=== PATIENT | female | born 1940 | race Caucasian/White ===

== ENCOUNTER 2017-08-17 06:12 | Observation (INO) | payer MEDICARE, MEDICAID ==
[~2017-08-17 06:12] MED LIST changes: -ACET-2146 PO; -ALLO-119 PO; -ASCO-182 PO; -CALC-852 PO; -GLUC-198 PO; -LEVO-85 PO; -OMEG1CAP39 PO; -VERA120T72 PO; -WARF5TAB23 PO
--- NOTE | 2017-08-17 07:02 | ER Report ---
History and Physical Time Seen By MD: 07:02 HPI/ROS Chief Complaint: Weakness, s/p fall this morning at approximately 0200, b/l lower extremity weakness HPI: Patient is a 77 yo F here with complaints of weakness. Last night at approximately 0200 the patient was attempting to get to the bathroom when she realized she was too weak and slid down the door frame to the floor. Denies head trauma though she is on Warfarin. She reports that her weakness is b/l in the LE and she is on baseline oxygen 2 LPM NC (on 3-4 lpm here). She denies fevers, headaches, blurred vision, hematuria, melena. REVIEW OF SYSTEMS: Constitutional: No fever, No chills. Eyes: No discharge. ENT: No sore throat. Cardiovascular: No chest pain, no palpitations. Respiratory: No cough, + baseline shortness of breath. Gastrointestinal: + suprapubic abdominal pain, no vomiting. Genitourinary: No hematuria, no vaginal discharge. Musculoskeletal: No back pain. Skin: No rashes. Neurological: No headache. Allergies: Coded Allergies: digoxin (Verified Allergy, Severe, TOXIC, 08/17/17) Adhesive Bandage (Verified Allergy, Mild, 08/17/17) Penicillins (Verified Allergy, Mild, 08/17/17) Uncoded Allergies: NARCOTIC (Allergy, Unknown, VOMITING, 04/20/16) Home Meds Reported Medications Allopurinol (ZYLOPRIM) 300 Mg Tablet, 150 MG PO QDAY, TAB 08/17/17 Warfarin Sod (Coumadin (Or Equiv)) 2.5 Mg Tab, 2.5 MG PO 3XW for 2 Days, 0 Refills It is very important that you take your coumadin exactly as prescribed, have blood work to monitor your PT/INR values, and follow up with your health care provider as prescribed. Diet and medication can affect the PT/INR level. Keep your diet pretty much the same day to day. Many foods contain Vitamin K which helps blood to clot and can affect the way your coumadin works. You don't need to avoid foods that have Vitamin K, but you do need to eat about the same amount of them every day. Be sure to tell your provider before changing your diet for any reason (weight loss, illness, etc.) Do not start or discontinue any medications, prescribed or over the counter, except on the advise of your provider or pharmacist. Coumadin (Warfarin) increases the risk of bleeding. 10/04/11 Metoprolol Succinate (Metoprolol Succinate) 50 Mg Tab.sr.24h, 25 MG PO BID, 0 Refills 04/12/11 Oxygen (Oxygen) 2 L Inha, 3 L INH DAILY, 0 Refills 07/09/10 Atorvastatin (Lipitor) 10 Mg Tab, 10 MG PO QHS, 0 Refills 07/09/10 Glucosam Sul Na/Chondr [place] A Na (Ra Glucosamin-[place] Tb) 1 Tab Tablet, 1 TAB PO, 0 Refills 07/09/10 Fish Oil/[place]-3 Fatty Acids (Fish Oil 1,000 Mg Softgel) 1 Cap Capsule, 1 CAP PO , 0 Refills 07/09/10 Calcium Carbonate (Calcium) 600 Mg Tablet, 600 MG PO, 0 Refills 07/09/10 Potassium Chloride (Micro-K/K-Dur/Klor-Con) 10 Meq Capcr, 40 MEQ PO BID, 0 Refills 07/09/10 Montelukast Sodium (Singulair) 10 Mg Tablet, 10 MG PO QPM, 0 Refills 07/09/10 Furosemide (Lasix) 40 Mg Tab, 40 MG PO BID, 0 Refills 07/09/10 Discontinued Reported Medications Clindamycin Hcl (CLINDAMYCIN HCL) 150 Mg Capsule, 150 MG PO TID, #21 CAPSULE 12/03/12 Warfarin Sod (Coumadin (Or Equiv)) 5 Mg Tab, 5 MG PO QDAY for 5 Days, 0 Refills It is very important that you take your coumadin exactly as prescribed, have blood work to monitor your PT/INR values, and follow up with your health care provider as prescribed. Diet and medication can affect the PT/INR level. Keep your diet pretty much the same day to day. Many foods contain Vitamin K which helps blood to clot and can affect the way your coumadin works. You don't need to avoid foods that have Vitamin K, but you do need to eat about the same amount of them every day. Be sure to tell your provider before changing your diet for any reason (weight loss, illness, etc.) Do not start or discontinue any medications, prescribed or over the counter, except on the advise of your provider or pharmacist. Coumadin (Warfarin) increases the risk of bleeding. 10/04/11 Verapamil Hcl (Verapamil Er) 100 Mg Cap24h.pel, 100 MG PO QHS, 0 Refills 05/20/11 Verapamil Hcl (Verapamil Er) 100 Mg Cap24h.pel, 100 MG PO NOON, 0 Refills 05/20/11 Verapamil Hcl (Verapamil Er) 100 Mg Cap24h.pel, 50 MG PO QAM, 0 Refills 05/20/11 Fluticasone Propionate (Flovent Hfa 110 Mcg) 12 Gm Aer.w.adap, 0 INH BID, 0 Refills 07/09/10 Tiotropium [place] (Spiriva) 18 Mcg Inh, 1 PUFF DAILY, 0 Refills 07/09/10 Alprazolam (Alprazolam) 0.5 Mg Tab.rapdis, 0.5 MG PO HS, 0 Refills as needed 07/09/10 Discontinued Scripts Cephalexin Monohydrate (CEPHALEXIN) 500 Mg Cap, 500 MG PO Q6H, #28 CAP TAKE 1 CAPSULE BY MOUTH EVERY SIX HOURS Prov:SUMIT REED MD 05/08/14 Hx Smoking: No Exposure to Second Hand Smoke?: No Hx Substance Use Disorder: No Hx Alcohol Use: No Constitutional Vital Sign - Last 24 Hours 08/17/17 08/17/17 08/17/17 08/17/17 06:12 06:28 06:40 06:42 Pulse 49 55 B/P (MAP) 145/74 (97) 151/80 (103) Pulse Ox 95 94 08/17/17 08/17/17 08/17/17 08/17/17 07:00 07:12 07:20 07:40 Pulse 66 B/P (MAP) 154/89 (110) 139/76 (97) Pulse Ox 97 O2 Flow Rate 2.0 08/17/17 08/17/17 08/17/17 08/17/17 07:47 07:52 07:57 08:00 Temp 98.6 Pulse 49 53 B/P (MAP) 149/71 (97) Pulse Ox 97 95 08/17/17 08/17/17 08/17/17 08/17/17 08:19 08:24 08:27 08:28 Pulse 61 Resp 29 B/P (MAP) 166/105 (125) 171/94 (119) 166/105 (125) 171/94 (119) Pulse Ox 84 08/17/17 08:40 B/P (MAP) 154/74 (100) Physical Exam General Appearance: The patient is alert, has no immediate need for airway protection and no signs of toxicity. No acute distress Eyes: Pupils equal and round no pallor or injection. ENT, Mouth: Mucous membranes are moist. Respiratory: There are no retractions, lungs are clear to auscultation. Cardiovascular: Irregular rate and rhythm, bradycardic Gastrointestinal: Abdomen is soft and + mild tenderness suprapubic region, no masses, bowel sounds normal. Neurological: Bilateral lower extremity weakness, subjective, reflexes intact Skin: Warm and dry, no rashes. Musculoskeletal: Neck is supple non tender. Extremities are nontender, nonswollen and have full range of motion. [ ] DIFFERENTIAL DIAGNOSIS: After history and physical exam differential diagnosis was considered for electrolyte abnormality, urinary tract infection, abdominal infection, trauma, intracranial bleed. Medical Decision Making Data Points Result Diagram: 08/17/17 0744 08/17/17 0744 Laboratory Hematology Test 08/17/17 07:44 08/17/17 07:56 Red Blood Count 4.39 M/uL (4.17-5.56) Mean Corpuscular Volume 95.7 fL (80.0-96.0) Mean Corpuscular Hemoglobin 33.2 pg (26.0-33.0) Mean Corpuscular Hemoglobin Concent 34.7 g/dL (32.0-36.0) Red Cell Distribution Width 14.8 % (11.5-14.5) Mean Platelet Volume 9.2 fL (7.2-11.1) Neutrophils (%) (Auto) 79.9 % (39.4-72.5) Lymphocytes (%) (Auto) 7.9 % (17.6-49.6) Monocytes (%) (Auto) 10.6 % (4.1-12.4) Eosinophils (%) (Auto) 0.9 % (0.4-6.7) Basophils (%) (Auto) 0.7 % (0.3-1.4) Nucleated RBC Relative Count (auto) 0.0 /100WBC Neutrophils # (Auto) 7.8 K/uL (2.0-7.4) Lymphocytes # (Auto) 0.8 K/uL (1.3-3.6) Monocytes # (Auto) 1.0 K/uL (0.3-1.0) Eosinophils # (Auto) 0.1 K/uL (0.0-0.5) Basophils # (Auto) 0.1 K/uL (0.0-0.1) Nucleated RBC Absolute Count (auto) 0.00 K/uL Peripheral Blood Smear No Y/N Prothrombin Time 20.3 seconds (12.0-14.4) Prothromb Time International Ratio 1.70 Activated Partial Thromboplast Time 30 seconds (23-35) Sodium Level 140 mmol/L (137-145) Potassium Level 3.7 mmol/L (3.5-5.0) Chloride Level 93 mmol/L (98-107) Carbon Dioxide Level 36 mmol/L (22-31) Blood Urea Nitrogen 22 mg/dl (7-18) Creatinine 0.90 mg/dl (0.52-1.04) Glomerular Filtration Rate Calc > 60.0 Random Glucose 111 mg/dl (75-110) Calcium Level 9.3 mg/dl (8.4-10.2) Total Bilirubin 0.8 mg/dl (0.2-1.3) Aspartate Amino Transf (AST/SGOT) 28 U/L (0-35) Alanine Aminotransferase (ALT/SGPT) 32 U/L (0-56) Alkaline Phosphatase 67 U/L (0-126) Troponin I < 0.012 ng/ml Total Protein 7.6 g/dl (6.3-8.2) Albumin 3.9 g/dl (3.5-5.0) Urine Color [place] Urine Clarity Turbid Urine pH 6.0 pH (4.8-9.5) Urine Specific [place] 1.012 Urine Protein 100 mg/dL (NEGATIVE) Urine Glucose (UA) Negative mg/dL (NEGATIVE) Urine Ketones Negative mg/dL (NEGATIVE) Urine Blood Small (NEGATIVE) Urine Nitrite Negative (NEGATIVE) Urine Bilirubin Negative (NEGATIVE) Urine Urobilinogen Negative mg/dL (0.2-1.9) Urine Leukocyte Esterase Large (NEGATIVE) Urine RBC 21 /HPF (0-2/HPF) Urine WBC 3068 /HPF (0-5/HPF) Urine WBC Clumps Many /HPF Urine Squamous Epithelial Cells Many /LPF (</=FEW) Urine Transitional Epithelial Cells Many /LPF (NONE-FEW) Urine Bacteria Many /HPF (NONE-FEW) Urine Mucus None /HPF (NONE-FEW) Chemistry Test 08/17/17 07:44 08/17/17 07:56 White Blood Count 9.7 k/uL (4.5-11.0) Red Blood Count 4.39 M/uL (4.17-5.56) Hemoglobin 14.6 g/dL (12.0-16.0) Hematocrit 42.0 % (34.0-47.0) Mean Corpuscular Volume 95.7 fL (80.0-96.0) Mean Corpuscular Hemoglobin 33.2 pg (26.0-33.0) Mean Corpuscular Hemoglobin Concent 34.7 g/dL (32.0-36.0) Red Cell Distribution Width 14.8 % (11.5-14.5) Platelet Count 190 K/uL (150-450) Mean Platelet Volume 9.2 fL (7.2-11.1) Neutrophils (%) (Auto) 79.9 % (39.4-72.5) Lymphocytes (%) (Auto) 7.9 % (17.6-49.6) Monocytes (%) (Auto) 10.6 % (4.1-12.4) Eosinophils (%) (Auto) 0.9 % (0.4-6.7) Basophils (%) (Auto) 0.7 % (0.3-1.4) Nucleated RBC Relative Count (auto) 0.0 /100WBC Neutrophils # (Auto) 7.8 K/uL (2.0-7.4) Lymphocytes # (Auto) 0.8 K/uL (1.3-3.6) Monocytes # (Auto) 1.0 K/uL (0.3-1.0) Eosinophils # (Auto) 0.1 K/uL (0.0-0.5) Basophils # (Auto) 0.1 K/uL (0.0-0.1) Nucleated RBC Absolute Count (auto) 0.00 K/uL Peripheral Blood Smear No Y/N Prothrombin Time 20.3 seconds (12.0-14.4) Prothromb Time International Ratio 1.70 Activated Partial Thromboplast Time 30 seconds (23-35) Glomerular Filtration Rate Calc > 60.0 Calcium Level 9.3 mg/dl (8.4-10.2) Total Bilirubin 0.8 mg/dl (0.2-1.3) Aspartate Amino Transf (AST/SGOT) 28 U/L (0-35) Alanine Aminotransferase (ALT/SGPT) 32 U/L (0-56) Alkaline Phosphatase 67 U/L (0-126) Troponin I < 0.012 ng/ml Total Protein 7.6 g/dl (6.3-8.2) Albumin 3.9 g/dl (3.5-5.0) Urine Color Yuliana Urine Clarity Turbid Urine pH 6.0 pH (4.8-9.5) Urine Specific [place] 1.012 Urine Protein 100 mg/dL (NEGATIVE) Urine Glucose (UA) Negative mg/dL (NEGATIVE) Urine Ketones Negative mg/dL (NEGATIVE) Urine Blood Small (NEGATIVE) Urine Nitrite Negative (NEGATIVE) Urine Bilirubin Negative (NEGATIVE) Urine Urobilinogen Negative mg/dL (0.2-1.9) Urine Leukocyte Esterase Large (NEGATIVE) Urine RBC 21 /HPF (0-2/HPF) Urine WBC 3068 /HPF (0-5/HPF) Urine WBC Clumps Many /HPF Urine Squamous Epithelial Cells Many /LPF (</=FEW) Urine Transitional Epithelial Cells Many /LPF (NONE-FEW) Urine Bacteria Many /HPF (NONE-FEW) Urine Mucus None /HPF (NONE-FEW) Coagulation Test 08/17/17 07:44 Prothrombin Time 20.3 seconds Prothromb Time International Ratio 1.70 Activated Partial Thromboplast Time 30 seconds Urinalysis Test 08/17/17 07:56 Urine Color [place] Urine Clarity Turbid Urine pH 6.0 pH (4.8-9.5) Urine Specific [place] 1.012 Urine Protein 100 mg/dL (NEGATIVE) Urine Glucose (UA) Negative mg/dL (NEGATIVE) Urine Ketones Negative mg/dL (NEGATIVE) Urine Blood Small (NEGATIVE) Urine Nitrite Negative (NEGATIVE) Urine Bilirubin Negative (NEGATIVE) Urine Urobilinogen Negative mg/dL (0.2-1.9) Urine Leukocyte Esterase Large (NEGATIVE) Urine RBC 21 /HPF (0-2/HPF) Urine WBC 3068 /HPF (0-5/HPF) Urine WBC Clumps Many /HPF Urine Squamous Epithelial Cells Many /LPF (</=FEW) Urine Transitional Epithelial Cells Many /LPF (NONE-FEW) Urine Bacteria Many /HPF (NONE-FEW) Urine Mucus None /HPF (NONE-FEW) EKG/Imaging EKG Interpretation 12 lead EKG: Atrial fibrillation, rate 61 and the ischemic changes Rhythm: Atrial fibrillation Monitor Interpretation: Atrial Fibrillation Imaging Exam type: CHEST PA AND LAT History: weakness, SOB Comparison: September 20, 2011. Findings: Again noted is linear scarring in the lingula. There is no evidence of acute- appearing pulmonary consolidation, pleural effusions or overt pulmonary edema. Cardiac silhouette is enlarged, slightly increased when compared the prior study. There is moderate ectasia the thoracic aorta. Moderate spondylotic changes of the thoracic spine also noted IMPRESSION: 1. Linear scarring in the lingula although no evidence of acute pulmonary consolidation EXAMINATION: Head CT without intravenous contrast History: Weakness after fall. TECHNIQUE: Contiguous axial images were obtained from the skull base to the vertex without intravenous contrast. One of the following dose optimization techniques was utilized in the performance of this exam: Automated exposure control; adjustment of the mA and/or kV according to the patient's size; or use of an iterative reconstruction technique. Specific details can be referenced in the facility's radiology CT exam operational policy. COMPARISON STUDIES: none FINDINGS: Visualized mastoid air cells / paranasal sinuses: Mild mucosal thickening and small retention cysts in the maxillary sinuses. Moderate mucosal thickening ethmoid air cells on the left status post surgery. Calvarium and scalp: negative White matter: Moderate chronic small vessel disease. Dural venous sinuses / arterial structures: negative Ventricles / sulci / fissures: negative Masses / hemorrhage / midline shift: negative Extra-axial spaces: negative IMPRESSION: 1. No evidence of fracture or acute intracranial pathology. 2. Moderate chronic small vessel disease. 3. Paranasal sinus disease. ED Course/Re-evaluation ED Course Patient is a 77-year-old female here with complaints of lower extremity weakness bilaterally equal. Patient reportedly fell overnight and denies striking her head. She is currently on Coumadin found to be subtherapeutic on her INR level of 1.7. Patient was found to have a urinary tract infection which likely accounts for her weakness. Patient lives alone at home and was seen by paramedics at which time she refused to come in. She does report increased weakness, inability to get around her house currently. Patient is also on oxygen at baseline 2 L nasal cannula. Patient was too weak to stand here in the emergency department. Patient was given initial saline bolus as well as a dose of Levaquin for coverage of urinary tract infection. CT head was completed due to blood thinners and was negative for intracranial bleed. Chest x-ray showed no acute findings. Patient was discussed with Dr. Quintero who accepted the patient to the hospital service. Patient developed nausea and was given Zofran for symptoms management. Re-evaluation 08/17/2017 8:52:35 am I reevaluated the patient and she reports that she was unable to stand due to weakness during orthostatic blood pressure checks. Decision to Disposition Date: Aug 17, 2017 Decision to Disposition Time: 09:43 Depart Departure Latest Vital Signs Vital Signs Date Time Temp Pulse Resp B/P (MAP) Pulse Ox O2 Delivery O2 Flow Rate FiO2 08/17/17 08:40 154/74 (100) 08/17/17 08:27 61 29 84 08/17/17 07:47 98.6 08/17/17 07:20 2.0 Impression: Primary Impression: Urinary tract infection Additional Impressions: Subtherapeutic international normalized ratio (INR) Bilateral leg weakness Condition: Condition Unchanged Disposition: Admitted from ER Referrals: TERE BRITO MD (PCP) Problem Qualifiers MATTEO NGUYEN DO Aug 17, 2017 07:02
[2017-08-17 08:03] LABS: PLATELET COUNT, AUTOMATED 190 K/uL (150-450)
[2017-08-17 08:05] LABS: INR 1.7
[2017-08-17] MEDS ORDERED: NS(*) 0.9% 500 ML BAG 500 ML IV ONE (08:25)
[2017-08-17] MEDS ORDERED: LEVOFLOXACIN/D5W 750 MG/150 ML 150 ML IVPB ONE (08:25)
[2017-08-17] MEDS ORDERED: ALLO-119 PO (08:31)
--- NOTE | 2017-08-17 09:32 | EKG ---
FACILITY: [facility] - [place] PATIENT NAME: TEO DEVINE : [id number] MR: [id number] V: [id number] EXAM DATE: ORDERING PHYSICIAN: MATTEO NGUYEN TECHNOLOGIST: Test Reason : Blood Pressure : / mmHG Vent. Rate : 061 BPM Atrial Rate : 357 BPM P-R Int : 000 ms QRS Dur : 076 ms QT Int : 474 ms P-R-T Axes : 000 009 -01 degrees QTc Int : 477 ms Atrial flutter Low voltage QRS Cannot rule out Anterior infarct (cited on or before 13-JUL-2012) Abnormal ECG When compared with ECG of 13-JUL-2012 12:57, Nonspecific T wave abnormality now evident in Lateral leads Confirmed by TERE ARVIZU ([id number]) on 08/17/2017 12:27:36 PM Referred By: MOISES Confirmed By:TERE ARVIZU
--- NOTE | 2017-08-17 09:44 | RADIOLOGY IMAGING REPORT ---
[place] [facility] [place] NAME: Kimberlee Graham : 1940 MR: [id number] V: [id number] EXAM DATE: ORDERING PHYSICIAN: MATTEO NGUYEN TECHNOLOGIST: [place] [facility] [place] Kimberlee Graham : 1940 Visit/Account:[id number] Date of Sevice: 08/17/2017 Exam type: CHEST PA AND LAT History: weakness, SOB Comparison: September 20, 2011. Findings: Again noted is linear scarring in the lingula. There is no evidence of acute-appearing pulmonary con solidation, pleural effusions or overt pulmonary edema. Cardiac silhouette is enlarged, slightly inc reased when compared the prior study. There is moderate ectasia the thoracic aorta. Moderate spondy lotic changes of the thoracic spine also noted IMPRESSION: 1. Linear scarring in the lingula although no evidence of acute pulmonary consolidation Cardiomegaly slightly increased when compared the prior study although no evidence of overt pulmonary edema Report Dictated By: Elisa Branch MD at 08/17/2017 9:39 AM Report E-Signed By: Elisa Branch MD at 08/17/2017 9:41 AM [email or web address]
--- NOTE | 2017-08-17 09:51 | RADIOLOGY IMAGING REPORT ---
FACILITY: [facility] PATIENT NAME: Kimberlee Graham : 1940 MR: [id number] V: [id number] EXAM DATE: ORDERING PHYSICIAN: MATTEO NGUYEN TECHNOLOGIST: Location: [facility] Patient: Kimberlee Graham : 1940 Visit/Account:[id number] Date of Sevice: 08/17/2017 EXAMINATION: Head CT without intravenous contrast History: Weakness after fall. TECHNIQUE: Contiguous axial images were obtained from the skull base to the vertex without intraven ous contrast. One of the following dose optimization techniques was utilized in the performance of th is exam: Automated exposure control; adjustment of the mA and/or kV according to the patient's size; or use of an iterative reconstruction technique. Specific details can be referenced in the facility 's radiology CT exam operational policy. COMPARISON STUDIES: none FINDINGS: Visualized mastoid air cells / paranasal sinuses: Mild mucosal thickening and small retention cysts i n the maxillary sinuses. Moderate mucosal thickening ethmoid air cells on the left status post surger y. Calvarium and scalp: negative White matter: Moderate chronic small vessel disease. Dural venous sinuses / arterial structures: negative Ventricles / sulci / fissures: negative Masses / hemorrhage / midline shift: negative Extra-axial spaces: negative IMPRESSION: 1. No evidence of fracture or acute intracranial pathology. 2. Moderate chronic small vessel disease. 3. Paranasal sinus disease. Report Dictated By: Chase Garcia MD at 08/17/2017 9:45 AM Report E-Signed By: Chase Garcia MD at 08/17/2017 9:47 AM WSN:[email or web address]
[2017-08-17] MEDS ORDERED: ONDANSETRON 4 MG/2 ML VIAL IVP ONE (10:00)
[2017-08-17 10:33] VITALS: BP 113/88
[2017-08-17 10:51] VITALS: BP 139/82
[2017-08-17] MEDS ORDERED: INFLUENZA VIRUS VAC 0.5 ML SYR IM ONLY ONE (11:00)
--- NOTE | 2017-08-17 11:17 | History & Physical ---
History of Present Illness Chief Complaint Weakness History of Present Illness This patient presented to the emergency room after being unable to get out of her chair. She had to call paramedics twice in the last 24hrs because she was unable to get up. She denies any pain in her legs, but just describes a sensation of weakness. History Problems: (1) Afib (2) History of DVT (deep vein thrombosis) (3) Chronic diastolic (congestive) heart failure Home Meds Reported Medications Allopurinol (ZYLOPRIM) 300 Mg Tablet, 150 MG PO QDAY, TAB 08/17/17 Warfarin Sod (Coumadin (Or Equiv)) 2.5 Mg Tab, 2.5 MG PO 3XW for 2 Days, 0 Refills It is very important that you take your coumadin exactly as prescribed, have blood work to monitor your PT/INR values, and follow up with your health care provider as prescribed. Diet and medication can affect the PT/INR level. Keep your diet pretty much the same day to day. Many foods contain Vitamin K which helps blood to clot and can affect the way your coumadin works. You don't need to avoid foods that have Vitamin K, but you do need to eat about the same amount of them every day. Be sure to tell your provider before changing your diet for any reason (weight loss, illness, etc.) Do not start or discontinue any medications, prescribed or over the counter, except on the advise of your provider or pharmacist. Coumadin (Warfarin) increases the risk of bleeding. 10/04/11 Metoprolol Succinate (Metoprolol Succinate) 50 Mg Tab.sr.24h, 25 MG PO BID, 0 Refills 04/12/11 Oxygen (Oxygen) 2 L Inha, 3 L INH DAILY, 0 Refills 07/09/10 Atorvastatin (Lipitor) 10 Mg Tab, 10 MG PO QHS, 0 Refills 07/09/10 Glucosam Sul Na/Chondr Glover A Na (Ra Glucosamin-Chondroit Tb) 1 Tab Tablet, 1 TAB PO, 0 Refills 07/09/10 Fish Oil/[place]-3 Fatty Acids (Fish Oil 1,000 Mg Softgel) 1 Cap Capsule, 1 CAP PO , 0 Refills 07/09/10 Calcium Carbonate (Calcium) 600 Mg Tablet, 600 MG PO, 0 Refills 07/09/10 Potassium Chloride (Micro-K/K-Dur/Klor-Con) 10 Meq Capcr, 40 MEQ PO BID, 0 Refills 07/09/10 Montelukast Sodium (Singulair) 10 Mg Tablet, 10 MG PO QPM, 0 Refills 07/09/10 Furosemide (Lasix) 40 Mg Tab, 40 MG PO BID, 0 Refills 07/09/10 Discontinued Reported Medications Clindamycin Hcl (CLINDAMYCIN HCL) 150 Mg Capsule, 150 MG PO TID, #21 CAPSULE 12/03/12 Warfarin Sod (Coumadin (Or Equiv)) 5 Mg Tab, 5 MG PO QDAY for 5 Days, 0 Refills It is very important that you take your coumadin exactly as prescribed, have blood work to monitor your PT/INR values, and follow up with your health care provider as prescribed. Diet and medication can affect the PT/INR level. Keep your diet pretty much the same day to day. Many foods contain Vitamin K which helps blood to clot and can affect the way your coumadin works. You don't need to avoid foods that have Vitamin K, but you do need to eat about the same amount of them every day. Be sure to tell your provider before changing your diet for any reason (weight loss, illness, etc.) Do not start or discontinue any medications, prescribed or over the counter, except on the advise of your provider or pharmacist. Coumadin (Warfarin) increases the risk of bleeding. 10/04/11 Verapamil Hcl (Verapamil Er) 100 Mg Cap24h.pel, 100 MG PO QHS, 0 Refills 05/20/11 Verapamil Hcl (Verapamil Er) 100 Mg Cap24h.pel, 100 MG PO NOON, 0 Refills 05/20/11 Verapamil Hcl (Verapamil Er) 100 Mg Cap24h.pel, 50 MG PO QAM, 0 Refills 05/20/11 Fluticasone Propionate (Flovent Hfa 110 Mcg) 12 Gm Aer.w.adap, 0 INH BID, 0 Refills 07/09/10 Tiotropium [place] (Spiriva) 18 Mcg Inh, 1 PUFF DAILY, 0 Refills 07/09/10 Alprazolam (Alprazolam) 0.5 Mg Tab.rapdis, 0.5 MG PO HS, 0 Refills as needed 07/09/10 Discontinued Scripts Cephalexin Monohydrate (CEPHALEXIN) 500 Mg Cap, 500 MG PO Q6H, #28 CAP TAKE 1 CAPSULE BY MOUTH EVERY SIX HOURS Prov:SUMIT REED MD 05/08/14 Allergies: Coded Allergies: digoxin (Verified Allergy, Severe, TOXIC, 08/17/17) Adhesive Bandage (Verified Allergy, Mild, 08/17/17) Penicillins (Verified Allergy, Mild, 08/17/17) Uncoded Allergies: NARCOTIC (Allergy, Unknown, VOMITING, 04/20/16) Hx Smoking: No Exposure to Second Hand Smoke?: No Caffeine Intake: Coffee, Tea, Soda Caffeine/Cups Per Day: OCC Hx Alcohol Use: No Hx Substance Use Disorder: No Review of Systems All Systems Reviewed/Normal: Yes, Except as Noted Neurological: Weakness Exam Vital Signs Vital Signs Date Time Temp Pulse Resp B/P (MAP) Pulse Ox O2 Delivery O2 Flow Rate FiO2 08/17/17 10:51 98.4 63 20 139/82 (101) 97 Nasal Cannula 4.0 Neuro: No Gross deficits Eyes: PERRLA Cardiovascular: Regular Rate and Rhythm Respiratory: Clear to Auscultation GI: Abd Soft and Non-Tender Extremities: No Edema Integumentary: No Cyanosis Medical Decision Making Data Points Result Diagram: 08/17/17 0744 08/17/17 0744 EKG / Imaging Imaging Chest x-ray reviewed. CT head reviewed. Assessment and Plan Problems: (1) Bilateral leg weakness Status: Acute Assessment & Plan: She had two episodes where she could not get out of her chair and had to call EMS. She denies any pain or injury. An ESR and CPK have been ordered. Physical and occupational therapy have also been consulted. (2) Pyuria Assessment & Plan: Her urine did contain many WBC and bacteria, but this was reportedly collected from a toilet hat. A cath UA and culture have been ordered , but this was collected after she received a dose of levofloxacin in the emergency room. (3) Afib Assessment & Plan: She is on chronic treatment with metoprolol and warfarin. Daily INR monitoring has been ordered. (4) Chronic diastolic (congestive) heart failure Assessment & Plan: She is on chronic treatment with Lasix. Her last echocardiogram (2011) showed an ejection fraction of 57%. Daily weights have been ordered. Copies to: TERE BRITO MD Venous Thromboembolism Antithrombotics Is Pt On Any Antithrombotics?: Yes Exam Sepsis Risk: No Definite Risk TERE ARVIZU DO Aug 17, 2017 11:17
[2017-08-17] MEDS ORDERED: WARFARIN SOD 2.5 MG TAB PO SCH ×2 (13:00→15:15)
[2017-08-17] MEDS: FUROSEMIDE 40 MG TAB PO SCH (14:26)
[2017-08-17 14:59] VITALS: BP 146/71
[2017-08-17] MEDS ORDERED: VERA120T72 PO (14:59)
[2017-08-17] MEDS ORDERED: CALC-852 PO (14:59)
[2017-08-17] MEDS ORDERED: GLUC-198 PO (14:59)
[2017-08-17] MEDS ORDERED: OMEG1CAP39 PO (14:59)
[2017-08-17] MEDS ORDERED: VERA120C9 PO (14:59)
[2017-08-17] MEDS ORDERED: WARF5TAB23 PO (14:59)
[2017-08-17] MEDS ORDERED: ASCO-182 PO (14:59)
[2017-08-17] MEDS ORDERED: ACET-2146 PO (14:59)
[2017-08-17] MEDS: MONTELUKAST SODIUM 10 MG TAB PO SCH (16:49)
[2017-08-17] MEDS ORDERED: POTASSIUM CHL 10 MEQ TABCR PO SCH (17:00)
[2017-08-17 19:20] VITALS: BP 136/71
[2017-08-17] MEDS ORDERED: METOPROLOL SUCC XL 25 MG TABCR PO SCH (21:00)
[2017-08-17 23:37] VITALS: BP 163/91
[2017-08-18] VITALS (7 sets, daily range): BP systolic 153–169; BP diastolic 76–101
[2017-08-18 05:54] LABS: INR 2.26
[2017-08-18] MEDS: FUROSEMIDE 40 MG TAB PO SCH ×2 (08:37→14:46)
[2017-08-18] MEDS: ALLOPURINOL 300 MG TAB PO SCH (08:37)
[2017-08-18] MEDS ORDERED: VERAPAMIL HCL 40 MG TAB PO SCH (09:00)
[2017-08-18] MEDS ORDERED: VERAPAMIL HCL 120 MG PO SCH (09:00)
[2017-08-18] MEDS: LEVOFLOXACIN 500 MG TAB PO SCH (10:16)
--- NOTE | 2017-08-18 11:02 | Hospitalist Progress Note ---
Subjective Progress Notes Subjective She reports feeling much improved. She was able to ambulate with PT/nursing. Physical Exam Vital Signs Date Time Temp Pulse Resp B/P (MAP) Pulse Ox O2 Delivery O2 Flow Rate FiO2 08/18/17 08:39 98.0 53 20 164/80 (108) 99 Nasal Cannula 4.0 Intake and Output 08/19/17 07:00 Intake Total 240 ml Balance 240 ml Intake Oral 240 ml # Voids 1 General Appearance: Alert, Awake Cardiovascular: Regular Rate and Rhythm Respiratory: Clear to Auscultation GI: Soft and Non-Tender Result Diagram: 08/17/17 0744 08/17/17 07 Monitor Interpretation: Atrial Fibrillation Assessment and Plan Problems: (1) Bilateral leg weakness Status: Acute Assessment & Plan: She had two episodes where she could not get out of her chair and had to call EMS. She denies any pain or injury. An ESR and CPK are unremarkable. Physical therapy has seen her and she is now ambulating well. I suspect it may have been related to UTI. (2) Pyuria Assessment & Plan: Cath UA shows many WBCs and culture is growing a GNR. She is on Levaquin and seems to be improved. (3) Afib Assessment & Plan: She is on chronic treatment with metoprolol and warfarin. Daily INR monitoring has been ordered. (4) Chronic diastolic (congestive) heart failure Assessment & Plan: She is on chronic treatment with Lasix. Her last echocardiogram (2011) showed an ejection fraction of 57%. Daily weights have been ordered. Exam Sepsis Risk: No Definite Risk SALO SMITH MD Aug 18, 2017 11:02
[2017-08-18] MEDS: POTASSIUM CHL 10 MEQ TABCR PO SCH ×2 (12:45→17:18)
[2017-08-18] MEDS: WARFARIN SOD 5 MG TAB PO SCH (12:47)
[2017-08-18] MEDS ORDERED: POTASSIUM CHL 10 MEQ TABCR PO ONE (13:00)
[2017-08-18] MEDS: MONTELUKAST SODIUM 10 MG TAB PO SCH (17:18)
[2017-08-19 03:17] VITALS: BP 154/79
[2017-08-19 06:58] LABS: PLATELET COUNT, AUTOMATED 142 K/uL (150-450)
[2017-08-19 07:00] LABS: INR 2.15
[2017-08-19 07:10] VITALS: BP 143/70
[2017-08-19] MEDS: POTASSIUM CHL 10 MEQ TABCR PO SCH ×2 (09:47→12:37)
[2017-08-19] MEDS: ALLOPURINOL 300 MG TAB PO SCH (09:47)
[2017-08-19] MEDS: FUROSEMIDE 40 MG TAB PO SCH ×2 (09:47→13:10)
[2017-08-19] MEDS: LEVOFLOXACIN 500 MG TAB PO SCH (10:18)
[2017-08-19 11:27] VITALS: BP 150/77
[2017-08-19] MEDS ORDERED: LEVO-85 PO (11:31)
--- NOTE | 2017-08-19 11:46 | Hospitalist Depart ---
Discharge Summary Reason for Hosp/Final Diag: (1) Urinary tract infection Status: Acute Hospital Course & Plan: She presented with weakness. She had significant pyuria. There were 2 cultures done and they are both growing Citrobacter Koseri , but in low colony/ml numbers. It is sensitive to Levofloxacin, which will be continued for one more day to make a 3 day course of treatment. She has been afebrile and has had a normal WBC. (2) Bilateral leg weakness Status: Acute Hospital Course & Plan: She had two episodes where she could not get out of her chair and had to call EMS. She denies any pain or injury. An ESR and CPK are unremarkable. It seems to have been related to UTI. Physical therapy has seen her and report that she was able to walk independently with a RW. She continues to ambulate safely with nursing staff today. (3) Afib Hospital Course & Plan: She is on chronic treatment with metoprolol and warfarin. She is not on rate control medication and is actually borderline bradycardic at times. She is not symptomatic. INR is therapeutic. Will have her get a repeat INR in a week. (4) Chronic diastolic (congestive) heart failure Hospital Course & Plan: She is on chronic treatment with Lasix. Her last echocardiogram (2011) showed an ejection fraction of 57%. Departure Weight (Pounds): 190 Weight (Ounces): 3.0 Result Diagram: 08/19/17 0614 08/19/17613 Item Value Date Time Urine Leukocyte Esterase Large H 08/17/17 0756 Urine Leukocyte Esterase Moderate H 08/17/17 1230 Urine RBC 21 /HPF 08/17/17 0756 Urine WBC 3068 /HPF 08/17/17 0756 Urine WBC 4310 /HPF 08/17/17 1230 Urine RBC 22 /HPF 08/17/17 1230 Urine Squamous Epithelial Cells Many /LPF H 08/17/17 0756 Urine Squamous Epithelial Cells None /LPF 08/17/17 1230 White Blood Count 7.9 k/uL 08/19/17 0614 Neutrophils (%) (Auto) 76.9 % H 08/19/17 0614 Lymphocytes (%) (Auto) 10.4 % L 08/19/17 0614 Monocytes (%) (Auto) 10.9 % 08/19/17 0614 Blood Urea Nitrogen 22 mg/dl H 08/17/17 0744 Blood Urea Nitrogen 20 mg/dl H 08/19/17 0614 Creatinine 0.80 mg/dl 08/19/17 06 Creatinine 0.90 mg/dl 08/17/17 07 Sodium Level 140 mmol/L 08/17/17 0744 Sodium Level 137 mmol/L 08/19/17 0614 Potassium Level 4.0 mmol/L 08/19/17613 Potassium Level 3.7 mmol/L 08/17/17 07 Carbon Dioxide Level 36 mmol/L H 08/17/17 0744 Carbon Dioxide Level 36 mmol/L H 08/19/17 0614 Calcium Level 9.3 mg/dl 08/17/17 07 Aspartate Amino Transf (AST/SGOT) 28 U/L 08/17/17 07 Alanine Aminotransferase (ALT/SGPT) 32 U/L 08/17/17 07 Alkaline Phosphatase 67 U/L 08/17/17 07 Total Bilirubin 0.8 mg/dl 08/17/17743 Total Creatine Kinase 42 U/L 08/17/17 0744 Calcium Level 8.5 mg/dl 08/19/17613 Total Bilirubin 0.6 mg/dl 08/19/17 0614 Aspartate Amino Transf (AST/SGOT) 20 U/L 08/19/17 0614 Alanine Aminotransferase (ALT/SGPT) 23 U/L 08/19/17 0614 Alkaline Phosphatase 53 U/L 08/19/1714 Troponin I < 0.012 ng/ml 08/17/17743 Prothromb Time International Ratio 2.15 08/19/17613 Prothromb Time International Ratio 2.26 08/18/17 0529 Prothromb Time International Ratio 1.70 08/17/17743 SPEC #: [id number] YANCI: 08/17/17 STATUS: COMP REQ #: [id number] RECD: 08/17/[address]: TERE ARVIZU DO SOURCE: STRCATH ENTR: 08/17/[address]: TERE BRITO MD SPDESC: ORDERED: CULT URINE COMMENTS: Has specimen been collected/obtained? Y Procedure Result Verified URINE CULTURE Final 08/19/17-744 Organism 1 CITROBACTER KOSERI <10,000 COL/ML CIT HANK M.I.C. RX --------- --- CEFAZOLIN <=4 S CEFTAZIDIME <=1 S CEFTRIAXONE <=1 S CEFEPIME <=1 S CEFOXITIN <=4 S ERTAPENEM <=0.5 S CIPROFLOXACIN <=0.25 S GENTAMICIN <=1 S IMIPENEM <=0.25 S LEVOFLOXACIN <=0.12 S NITROFURANTOIN <=16 S PIPERACILLIN/TAZOBACTAM <=4 S TOBRAMYCIN <=1 S TRIMETHOPRIM/SULFAMETHOXAZOLE <=20 S Imaging 08/17/17 CXR - 1. Linear scarring in the lingula although no evidence of acute pulmonary consolidation Cardiomegaly slightly increased when compared the prior study although no evidence of overt pulmonary edema 08/17/[address] - 1. No evidence of fracture or acute intracranial pathology. 2. Moderate chronic small vessel disease. 3. Paranasal sinus disease. EKG Vent. Rate : 061 BPM Atrial Rate : 357 BPM P-R Int : 000 ms QRS Dur : 076 ms QT Int : 474 ms P-R-T Axes : 000 009 -01 degrees QTc Int : 477 ms Atrial flutter Low voltage QRS Cannot rule out Anterior infarct (cited on or before 13-JUL-2012) Abnormal ECG When compared with ECG of 13-JUL-2012 12:57, Nonspecific T wave abnormality now evident in Lateral leads Confirmed by TREE ARVIZU ([id number]) on 08/17/2017 12:27:36 PM Referred By: MOISES Confirmed By:TERE ARVIZU Condition: Improved Discharge: Home Health PT/OT Follow Up For: PT For Strengthening Home Health RN Follow Up For: Nursing Assessment Home Health COLLISION TECHNICIAN Follow Up For: ADL Assistance Discharge Instructions Home Meds Active Scripts Levofloxacin 500 Mg Tab (LEVAQUIN 500 MG TAB) 500 Mg Tablet, 250 MG PO QDAY@10, #1 Prov:SAMM SO MD 08/19/17 Reported Medications Warfarin Sodium (WARFARIN SODIUM) 5 Mg Tablet, 2.5 MG PO DIRECTED, TAB MON,FRI 08/17/17 Warfarin Sodium (WARFARIN SODIUM) 5 Mg Tablet, 5 MG PO DIRECTED, TAB TUES,WED,THURS,SAT,SUN 08/17/17 Acetaminophen 500 Mg Tab (ACETAMINOPHEN EXTRA STRENGTH) 500 Mg Tablet, 500-1000 MG PO BID Y for PAIN, TAB 08/17/17 Calcium Carbonate/Vitamin D3 (CALCIUM + VITAMIN D TABLET) 1 Each Tablet, 1 EACH PO QDAY 08/17/17 Ascorbic Acid (VITAMIN C) 500 Mg Tablet, 500 MG PO QDAY, TAB 08/17/17 Glucosa [place] 2KCL/Chondroitin [place] (GLUCOSAMINE & CHONDROITIN CAP) 1 Each Capsule, 2 EACH PO QDAY, CAPSULE 08/17/17 [place]-3S/Dha/Epa/Fish Oil/D3 (FISH OIL + D3 SOFTGEL) 1 Each Capsule, 2 EACH PO QDAY, CAPSULE 08/17/17 Allopurinol (ZYLOPRIM) 300 Mg Tablet, 150 MG PO QDAY, TAB 08/17/17 Oxygen (Oxygen) 2 L Inha, 3 L INH DAILY, 0 Refills 07/09/10 Atorvastatin (Lipitor) 10 Mg Tab, 10 MG PO QHS, 0 Refills 07/09/10 Potassium Chloride (Micro-K/K-Dur/Klor-Con) 10 Meq Capcr, 20 MEQ PO TID, 0 Refills 07/09/10 Montelukast Sodium (Singulair) 10 Mg Tablet, 10 MG PO QPM, 0 Refills 07/09/10 Furosemide (Lasix) 40 Mg Tab, 40 MG PO BID, 0 Refills 07/09/10 Discontinued Reported Medications Verapamil Hcl (VERAPAMIL HCL) 120 Mg Tablet, 60 MG PO QDAY 08/17/17 Verapamil Hcl (VERAPAMIL ER) 120 Mg Cap24h.pel, 120 MG PO QDAY 08/17/17 Clindamycin Hcl (CLINDAMYCIN HCL) 150 Mg Capsule, 150 MG PO TID, #21 CAPSULE 12/03/12 Warfarin Sod (Coumadin (Or Equiv)) 5 Mg Tab, 5 MG PO QDAY for 5 Days, 0 Refills It is very important that you take your coumadin exactly as prescribed, have blood work to monitor your PT/INR values, and follow up with your health care provider as prescribed. Diet and medication can affect the PT/INR level. Keep your diet pretty much the same day to day. Many foods contain Vitamin K which helps blood to clot and can affect the way your coumadin works. You don't need to avoid foods that have Vitamin K, but you do need to eat about the same amount of them every day. Be sure to tell your provider before changing your diet for any reason (weight loss, illness, etc.) Do not start or discontinue any medications, prescribed or over the counter, except on the advise of your provider or pharmacist. Coumadin (Warfarin) increases the risk of bleeding. 10/04/11 Warfarin Sod (Coumadin (Or Equiv)) 2.5 Mg Tab, 2.5 MG PO 3XW for 2 Days, 0 Refills It is very important that you take your coumadin exactly as prescribed, have blood work to monitor your PT/INR values, and follow up with your health care provider as prescribed. Diet and medication can affect the PT/INR level. Keep your diet pretty much the same day to day. Many foods contain Vitamin K which helps blood to clot and can affect the way your coumadin works. You don't need to avoid foods that have Vitamin K, but you do need to eat about the same amount of them every day. Be sure to tell your provider before changing your diet for any reason (weight loss, illness, etc.) Do not start or discontinue any medications, prescribed or over the counter, except on the advise of your provider or pharmacist. Coumadin (Warfarin) increases the risk of bleeding. 10/04/11 Verapamil Hcl (Verapamil Er) 100 Mg Cap24h.pel, 100 MG PO QHS, 0 Refills 05/20/11 Verapamil Hcl (Verapamil Er) 100 Mg Cap24h.pel, 100 MG PO NOON, 0 Refills 05/20/11 Verapamil Hcl (Verapamil Er) 100 Mg Cap24h.pel, 50 MG PO QAM, 0 Refills 05/20/11 Metoprolol Succinate (Metoprolol Succinate) 50 Mg Tab.sr.24h, 25 MG PO BID, 0 Refills 04/12/11 Fluticasone Propionate (Flovent Hfa 110 Mcg) 12 Gm Aer.w.adap, 0 INH BID, 0 Refills 07/09/10 Tiotropium [place] (Spiriva) 18 Mcg Inh, 1 PUFF DAILY, 0 Refills 07/09/10 Alprazolam (Alprazolam) 0.5 Mg Tab.rapdis, 0.5 MG PO HS, 0 Refills as needed 07/09/10 Glucosam Sul Na/Chondr [place] A Na (Ra Glucosamin-[place] Tb) 1 Tab Tablet, 1 TAB PO, 0 Refills 07/09/10 Fish Oil/[place]-3 Fatty Acids (Fish Oil 1,000 Mg Softgel) 1 Cap Capsule, 1 CAP PO , 0 Refills 07/09/10 Calcium Carbonate (Calcium) 600 Mg Tablet, 600 MG PO, 0 Refills 07/09/10 Discontinued Scripts Cephalexin Monohydrate (CEPHALEXIN) 500 Mg Cap, 500 MG PO Q6H, #28 CAP TAKE 1 CAPSULE BY MOUTH EVERY SIX HOURS Prov:SUMIT REED MD 05/08/14 Diet: Fluid Restricted Activity: With Walker Special Instructions: INR in about a week Go to the ER for fevers, worsening weakness Follow up with your PCP in 1-2 weeks. Copies to: TERE BRITO MD Venous Thromboembolism Antithrombotics Is Pt On Any Antithrombotics?: Yes SAMM SO MD Aug 19, 2017 11:46
[2017-08-19] MEDS: WARFARIN SOD 5 MG TAB PO SCH (12:38)
[2017-08-20] MEDS ORDERED: WARFARIN SOD 2.5 MG TAB PO SCH (13:00)
== END 2017-08-19 11:29 | disposition home or self-care (01) ==
LOC: ER 06:20 → MED 09:53 → INTOOBSV 09:53
PROVIDERS: ADMIT Family Medicine; ATTEND Family Medicine
DX: N39.0 Urinary tract infection, site not specified (principal); I50.32 Chronic diastolic (congestive) heart failure; I48.2 Chronic atrial fibrillation; Z79.01 Long term (current) use of anticoagulants; Z86.718 Personal history of other venous thrombosis and embolism; Z88.0 Allergy status to penicillin; Z88.8 Allergy status to other drugs, medicaments and biological substances
CPT/HCPCS: 36415; 36416; 70450; 71046; 81001; 82550; 82948; 84484; 85025; 85610; 85651; 85730; 87077; 87088; 87186; 93005; 96360; 97116; 97161; 97165; 99284; A9270; G0378; J1956; J2405; J7040; 82040; 82247; 82310; 82374; 82435; 82565; 82947; 84075; 84132; 84155; 84295; 84450; 84460; 84520

== ENCOUNTER → 2017-08-17 | Outpatient (CLI) | payer MEDICARE, MEDICAID ==
[~2017-08-17] MED LIST: ACET-2146 PO; ALB0.5 INH; ALB17R INH; ALLO-119 PO; ALPR-699 PO; ARTHRITIS MED; ASCO-182 PO; ATOR10TA24 PO; ATR10 PO; BACDS PO; BECR40 INH; CALC-852 PO; CALC600T72 PO; CAN32 PO; CEPH500C24 PO; CLIN-75 PO; DOXY-179 PO; FLUINH INH; FUR40 PO; GLUC-198 PO; GLUC1TAB55 PO; LEVO-85 PO; LOR5/325 PO; METO-235 PO; METO-259 PO; MONT10TA22 PO; MULTI VIT; NOR5/325 PO; OFF COUMADIN FOR OR; OLME40TA17 PO; OMEG-19 PO; OMEG1CAP39 PO; ONDA4TAB PO; OXYGEN INH; POT10 PO; PRE20 PO; PREDNISONE; TAM4 PO; TIO18R; TRA50 PO; TRAZ50 PO; VER100 PO; VERA120C9 PO; VERA120T72 PO; VERS120 PO; VIT500TA6 PO; WAR25 PO; WAR5 PO; WARF5TAB23 PO
== END ==
LOC: AMB 05:51
PROVIDERS: ATTEND Nurse Practitioner
DX: R53.1 Weakness (principal)
CPT/HCPCS: A0425; A0429

== ENCOUNTER 2017-08-24 18:48 | Inpatient (IN) | payer MEDICARE, MEDICAID ==
[~2017-08-24] VITALS: Ht 157.5 cm; Wt 86.3 kg
[~2017-08-24 18:48] MED LIST changes: -FURO-47 PO; -NYST15PO12 TP; -WARF-1 PO
[2017-08-24 19:07] LABS: PLATELET COUNT, AUTOMATED 175 K/uL (150-450)
[2017-08-24 19:16] LABS: INR 1.79
--- NOTE | 2017-08-24 19:39 | EKG ---
FACILITY: PATIENT NAME: TEO DEVINE : [id number] MR: [id number] V: [id number] EXAM DATE: ORDERING PHYSICIAN: ALEKSANDRA ARNOLD TECHNOLOGIST: MO Test Reason : [place] Blood Pressure : / mmHG Vent. Rate : 051 BPM Atrial Rate : 250 BPM P-R Int : 000 ms QRS Dur : 078 ms QT Int : 450 ms P-R-T Axes : 000 -03 -09 degrees QTc Int : 414 ms Atrial fibrillation with slow ventricular response Low voltage QRS Septal infarct (cited on or before 13-JUL-2012) Abnormal ECG Confirmed by SALO SMITH ([id number]) on 08/24/2017 10:09:51 PM Referred By: WEAKNESS Confirmed By:SALO SMITH
--- NOTE | 2017-08-24 19:43 | RADIOLOGY IMAGING REPORT ---
FACILITY: [facility] [place] PATIENT NAME: Kimberlee Graham : 1940 MR: [id number] V: [id number] EXAM DATE: ORDERING PHYSICIAN: ALEKSANDRA ARNOLD TECHNOLOGIST: Location: [facility] [place] Patient: Kimberlee Graham : 1940 Visit/Account:[id number] Date of Sevice: 08/24/2017 EXAMINATION: CT head without IV contrast HISTORY: Weakness, fall. COMPARISON: CT head from 08/17/2017. TECHNIQUE: Contiguous axial images were obtained from the skull base to the vertex without intraven ous contrast. Sagittal and coronal reformatted images are also submitted. One of the following dose optimization techniques was utilized in the performance of this exam: Autom ated exposure control; adjustment of the mA and/or kV according to the patient's size; or use of an i terative reconstruction technique. Specific details can be referenced in the facility's radiology C T exam operational policy. FINDINGS: Brain volume: Normal. Ventricles: Normal. Acute ischemic changes: None. Hemorrhage: No acute intracranial hemorrhage. Masses/edema: None. Shoemaker-white: Negative. White matter: Patchy hypodensities in the deep white matter bilaterally. Vessels: Calcified plaque of both carotid siphons. Extra-axial: Negative. Calvarium/scalp: There is no acute fracture. Patchy appearance of the calvarium with multiple small lucencies. Skull base/visualized face: Patchy appearance of the skull base with multiple small lucencies. Previ ous lens surgery bilaterally. Visualized sinuses/orbits: Postoperative changes in the left ethmoid air cells with mild patchy muco madelyn thickening of the ethmoid region and bilateral maxillary sinuses, unchanged. IMPRESSION: 1. No acute fracture, hemorrhage or intracranial mass lesion. No CT evidence of acute infarct. 2. Patchy appearance of the calvarium and skull base with multiple small lucencies. This could be due to osteoporosis. Multiple myeloma is in the differential. Report Dictated By: Mercedes Rosario MD at 08/24/2017 7:36 PM Report E-Signed By: Mercedes Rosario MD at 08/24/2017 7:40 PM WSN:[id number]
--- NOTE | 2017-08-24 20:01 | ER Report ---
History and Physical Time Seen By MD: 18:55 Hx. of Stated Complaint: Pt reports she slid down a wall (from standing) when making dinner tonight. Pt reports that she had been doing exercises earlier today. HPI/ROS CHIEF COMPLAINT: Leg weakness HISTORY OF PRESENT ILLNESS: Patient is a 77-year-old female who presents the ED with complaint of leg weakness and fall. She just dates that she call EMS after she slid down to the floor stating that her legs gave out. She states that she had home health and physical therapy there at her house today and states that they worked her too hard and had weakness afterwards. She was admitted to the hospital last week for leg weakness that was thought to be possibly secondary to her urinary tract infection. She is currently on treatment for this with levofloxacin. Patient denies any injury. She states that she did not hit her head or have any leg pain. She states that she is still feeling slightly weak now. She denies any chest pain or shortness of breath. She states that she is feeling well and just feels a little bit weak. She does live at home by herself and has home health there are 5 times a week. She denies any fever, abdominal pain, dysuria, increased urinary frequency, hematuria. REVIEW OF SYSTEMS: Constitutional: No fever, no chills. Eyes: No discharge. ENT: No sore throat. Cardiovascular: No chest pain, no palpitations. Respiratory: No cough, no shortness of breath. Gastrointestinal: No abdominal pain, no vomiting. Genitourinary: No hematuria. Musculoskeletal: See history of present illness. Skin: No rashes. Neurological: See history of present illness. Allergies: Coded Allergies: digoxin (Verified Allergy, Severe, TOXIC, 08/17/17) Adhesive Bandage (Verified Allergy, Mild, 08/17/17) Penicillins (Verified Allergy, Mild, 08/17/17) Uncoded Allergies: NARCOTIC (Allergy, Unknown, VOMITING, 04/20/16) Home Meds Reported Medications Warfarin Sodium (WARFARIN SODIUM) 5 Mg Tablet, 2.5 MG PO DIRECTED, TAB MON,FRI 08/17/17 Warfarin Sodium (WARFARIN SODIUM) 5 Mg Tablet, 5 MG PO DIRECTED, TAB TUES,WED,THURS,SAT,SUN 08/17/17 Acetaminophen 500 Mg Tab (ACETAMINOPHEN EXTRA STRENGTH) 500 Mg Tablet, 500-1000 MG PO BID Y for PAIN, TAB 08/17/17 Calcium Carbonate/Vitamin D3 (CALCIUM + VITAMIN D TABLET) 1 Each Tablet, 1 EACH PO QDAY 08/17/17 Ascorbic Acid (VITAMIN C) 500 Mg Tablet, 500 MG PO QDAY, TAB 08/17/17 Glucosa Golver 2KCL/Chondroitin Glover (GLUCOSAMINE & CHONDROITIN CAP) 1 Each Capsule, 2 EACH PO QDAY, CAPSULE 08/17/17 [place]-3S/Dha/Epa/Fish Oil/D3 (FISH OIL + D3 SOFTGEL) 1 Each Capsule, 2 EACH PO QDAY, CAPSULE 08/17/17 Allopurinol (ZYLOPRIM) 300 Mg Tablet, 150 MG PO QDAY, TAB 08/17/17 Oxygen (Oxygen) 2 L Inha, 3 L INH DAILY, 0 Refills 07/09/10 Atorvastatin (Lipitor) 10 Mg Tab, 10 MG PO QHS, 0 Refills 07/09/10 Potassium Chloride (Micro-K/K-Dur/Klor-Con) 10 Meq Capcr, 20 MEQ PO TID, 0 Refills 07/09/10 Montelukast Sodium (Singulair) 10 Mg Tablet, 10 MG PO QPM, 0 Refills 07/09/10 Furosemide (Lasix) 40 Mg Tab, 40 MG PO BID, 0 Refills 07/09/10 Discontinued Reported Medications Verapamil Hcl (VERAPAMIL HCL) 120 Mg Tablet, 60 MG PO QDAY 08/17/17 Verapamil Hcl (VERAPAMIL ER) 120 Mg Cap24h.pel, 120 MG PO QDAY 08/17/17 Clindamycin Hcl (CLINDAMYCIN HCL) 150 Mg Capsule, 150 MG PO TID, #21 CAPSULE 12/03/12 Warfarin Sod (Coumadin (Or Equiv)) 5 Mg Tab, 5 MG PO QDAY for 5 Days, 0 Refills It is very important that you take your coumadin exactly as prescribed, have blood work to monitor your PT/INR values, and follow up with your health care provider as prescribed. Diet and medication can affect the PT/INR level. Keep your diet pretty much the same day to day. Many foods contain Vitamin K which helps blood to clot and can affect the way your coumadin works. You don't need to avoid foods that have Vitamin K, but you do need to eat about the same amount of them every day. Be sure to tell your provider before changing your diet for any reason (weight loss, illness, etc.) Do not start or discontinue any medications, prescribed or over the counter, except on the advise of your provider or pharmacist. Coumadin (Warfarin) increases the risk of bleeding. 10/04/11 Warfarin Sod (Coumadin (Or Equiv)) 2.5 Mg Tab, 2.5 MG PO 3XW for 2 Days, 0 Refills It is very important that you take your coumadin exactly as prescribed, have blood work to monitor your PT/INR values, and follow up with your health care provider as prescribed. Diet and medication can affect the PT/INR level. Keep your diet pretty much the same day to day. Many foods contain Vitamin K which helps blood to clot and can affect the way your coumadin works. You don't need to avoid foods that have Vitamin K, but you do need to eat about the same amount of them every day. Be sure to tell your provider before changing your diet for any reason (weight loss, illness, etc.) Do not start or discontinue any medications, prescribed or over the counter, except on the advise of your provider or pharmacist. Coumadin (Warfarin) increases the risk of bleeding. 10/04/11 Verapamil Hcl (Verapamil Er) 100 Mg Cap24h.pel, 100 MG PO QHS, 0 Refills 05/20/11 Verapamil Hcl (Verapamil Er) 100 Mg Cap24h.pel, 100 MG PO NOON, 0 Refills 05/20/11 Verapamil Hcl (Verapamil Er) 100 Mg Cap24h.pel, 50 MG PO QAM, 0 Refills 05/20/11 Metoprolol Succinate (Metoprolol Succinate) 50 Mg Tab.sr.24h, 25 MG PO BID, 0 Refills 04/12/11 Fluticasone Propionate (Flovent Hfa 110 Mcg) 12 Gm Aer.w.adap, 0 INH BID, 0 Refills 07/09/10 Tiotropium [place] (Spiriva) 18 Mcg Inh, 1 PUFF DAILY, 0 Refills 07/09/10 Alprazolam (Alprazolam) 0.5 Mg Tab.rapdis, 0.5 MG PO HS, 0 Refills as needed 07/09/10 Glucosam Sul Na/Chondr Glover A Na (Ra Glucosamin-Chondroit Tb) 1 Tab Tablet, 1 TAB PO, 0 Refills 07/09/10 Fish Oil/[place]-3 Fatty Acids (Fish Oil 1,000 Mg Softgel) 1 Cap Capsule, 1 CAP PO , 0 Refills 07/09/10 Calcium Carbonate (Calcium) 600 Mg Tablet, 600 MG PO, 0 Refills 07/09/10 Discontinued Scripts Levofloxacin 500 Mg Tab (LEVAQUIN 500 MG TAB) 500 Mg Tablet, 250 MG PO QDAY@10, #1 Prov:SAMM SO MD 08/19/17 Cephalexin Monohydrate (CEPHALEXIN) 500 Mg Cap, 500 MG PO Q6H, #28 CAP TAKE 1 CAPSULE BY MOUTH EVERY SIX HOURS Prov:SUMIT REED MD 05/08/14 Reviewed Nurses Notes: Yes Old Medical Records Reviewed: Yes Hx Smoking: No Exposure to Second Hand Smoke?: No Hx Substance Use Disorder: No Hx Alcohol Use: No Constitutional Vital Sign - Last 24 Hours 08/24/17 08/24/17 08/24/17 08/24/17 18:48 18:49 18:56 18:56 Temp 98.5 Pulse 52 56 Resp 20 B/P (MAP) 163/77 (105) 163/77 Pulse Ox 96 92 O2 Delivery Room Air O2 Flow Rate 5.0 08/24/17 08/24/17 08/24/17 08/24/17 19:00 19:03 19:33 19:40 Pulse 57 50 Resp 14 12 B/P (MAP) 156/68 (97) 143/66 (91) Pulse Ox 95 92 08/24/17 08/24/17 08/24/17 19:48 20:00 20:18 Pulse 55 62 Resp 16 21 B/P (MAP) 152/75 (100) Pulse Ox 95 Intake and Output 08/24/17 08/24/17 08/25/17 15:00 23:00 07:00 Output Total 50 ml Balance -50 ml Physical Exam General Appearance: The patient is alert, has no immediate need for airway protection and no signs of toxicity. Patient appears to be in no acute distress. Eyes: Pupils equal and round no pallor or injection. EOMs are full bilaterally. ENT, Mouth: Mucous membranes are moist. Respiratory: There are no retractions, lungs are clear to auscultation. Cardiovascular: Regular rate and rhythm. Gastrointestinal: Abdomen is soft and non tender, no masses, bowel sounds normal. Neurological: Cranial nerves II through XII intact. Skin: Warm and dry, no rashes. Musculoskeletal: Neck is supple non tender. Extremities are nontender, nonswollen and have full range of motion. DIFFERENTIAL DIAGNOSIS: After history and physical exam differential diagnosis was considered for weakness including anemia, CAD, stroke, hemorrhage. Medical Decision Making Data Points Result Diagram: 08/24/17183908/24/171839 Laboratory Hematology Test 08/24/17 18:40 08/24/17 20:20 Red Blood Count 4.43 M/uL (4.17-5.56) Mean Corpuscular Volume 95.8 fL (80.0-96.0) Mean Corpuscular Hemoglobin 32.5 pg (26.0-33.0) Mean Corpuscular Hemoglobin Concent 33.9 g/dL (32.0-36.0) Red Cell Distribution Width 14.5 % (11.5-14.5) Mean Platelet Volume 9.8 fL (7.2-11.1) Neutrophils (%) (Auto) 77.3 % (39.4-72.5) Lymphocytes (%) (Auto) 11.7 % (17.6-49.6) Monocytes (%) (Auto) 8.7 % (4.1-12.4) Eosinophils (%) (Auto) 1.3 % (0.4-6.7) Basophils (%) (Auto) 1.0 % (0.3-1.4) Nucleated RBC Relative Count (auto) 0.0 /100WBC Neutrophils # (Auto) 6.6 K/uL (2.0-7.4) Lymphocytes # (Auto) 1.0 K/uL (1.3-3.6) Monocytes # (Auto) 0.7 K/uL (0.3-1.0) Eosinophils # (Auto) 0.1 K/uL (0.0-0.5) Basophils # (Auto) 0.1 K/uL (0.0-0.1) Nucleated RBC Absolute Count (auto) 0.00 K/uL Prothrombin Time 21.0 seconds (12.0-14.4) Prothromb Time International Ratio 1.79 Activated Partial Thromboplast Time 32 seconds (23-35) Sodium Level 141 mmol/L (137-145) Potassium Level 3.9 mmol/L (3.5-5.0) Chloride Level 97 mmol/L (98-107) Carbon Dioxide Level 32 mmol/L (22-31) Blood Urea Nitrogen 20 mg/dl (7-18) Creatinine 0.80 mg/dl (0.52-1.04) Glomerular Filtration Rate Calc > 60.0 Random Glucose 113 mg/dl (75-110) Calcium Level 9.6 mg/dl (8.4-10.2) Total Bilirubin 0.6 mg/dl (0.2-1.3) Aspartate Amino Transf (AST/SGOT) 28 U/L (0-35) Alanine Aminotransferase (ALT/SGPT) 31 U/L (0-56) Alkaline Phosphatase 70 U/L (0-126) Troponin I < 0.012 ng/ml Total Protein 7.8 g/dl (6.3-8.2) Albumin 4.0 g/dl (3.5-5.0) Urine Color Yellow Urine Clarity Clear Urine pH 6.0 pH (4.8-9.5) Urine Specific Only 1.012 Urine Protein Negative mg/dL (NEGATIVE) Urine Glucose (UA) Negative mg/dL (NEGATIVE) Urine Ketones Negative mg/dL (NEGATIVE) Urine Blood Negative (NEGATIVE) Urine Nitrite Negative (NEGATIVE) Urine Bilirubin Negative (NEGATIVE) Urine Urobilinogen Negative mg/dL (0.2-1.9) Urine Leukocyte Esterase Negative (NEGATIVE) Urine RBC <1 /HPF (0-2/HPF) Urine WBC 6 /HPF (0-5/HPF) Urine Squamous Epithelial Cells Few /LPF (NONE-FEW) Urine Bacteria Negative /HPF (NONE-FEW) Urine Mucus Few /HPF (NONE-FEW) Chemistry Test 08/24/17 18:40 08/24/17 20:20 White Blood Count 8.6 k/uL (4.5-11.0) Red Blood Count 4.43 M/uL (4.17-5.56) Hemoglobin 14.4 g/dL (12.0-16.0) Hematocrit 42.5 % (34.0-47.0) Mean Corpuscular Volume 95.8 fL (80.0-96.0) Mean Corpuscular Hemoglobin 32.5 pg (26.0-33.0) Mean Corpuscular Hemoglobin Concent 33.9 g/dL (32.0-36.0) Red Cell Distribution Width 14.5 % (11.5-14.5) Platelet Count 175 K/uL (150-450) Mean Platelet Volume 9.8 fL (7.2-11.1) Neutrophils (%) (Auto) 77.3 % (39.4-72.5) Lymphocytes (%) (Auto) 11.7 % (17.6-49.6) Monocytes (%) (Auto) 8.7 % (4.1-12.4) Eosinophils (%) (Auto) 1.3 % (0.4-6.7) Basophils (%) (Auto) 1.0 % (0.3-1.4) Nucleated RBC Relative Count (auto) 0.0 /100WBC Neutrophils # (Auto) 6.6 K/uL (2.0-7.4) Lymphocytes # (Auto) 1.0 K/uL (1.3-3.6) Monocytes # (Auto) 0.7 K/uL (0.3-1.0) Eosinophils # (Auto) 0.1 K/uL (0.0-0.5) Basophils # (Auto) 0.1 K/uL (0.0-0.1) Nucleated RBC Absolute Count (auto) 0.00 K/uL Prothrombin Time 21.0 seconds (12.0-14.4) Prothromb Time International Ratio 1.79 Activated Partial Thromboplast Time 32 seconds (23-35) Glomerular Filtration Rate Calc > 60.0 Calcium Level 9.6 mg/dl (8.4-10.2) Total Bilirubin 0.6 mg/dl (0.2-1.3) Aspartate Amino Transf (AST/SGOT) 28 U/L (0-35) Alanine Aminotransferase (ALT/SGPT) 31 U/L (0-56) Alkaline Phosphatase 70 U/L (0-126) Troponin I < 0.012 ng/ml Total Protein 7.8 g/dl (6.3-8.2) Albumin 4.0 g/dl (3.5-5.0) Urine Color Yellow Urine Clarity Clear Urine pH 6.0 pH (4.8-9.5) Urine Specific Only 1.012 Urine Protein Negative mg/dL (NEGATIVE) Urine Glucose (UA) Negative mg/dL (NEGATIVE) Urine Ketones Negative mg/dL (NEGATIVE) Urine Blood Negative (NEGATIVE) Urine Nitrite Negative (NEGATIVE) Urine Bilirubin Negative (NEGATIVE) Urine Urobilinogen Negative mg/dL (0.2-1.9) Urine Leukocyte Esterase Negative (NEGATIVE) Urine RBC <1 /HPF (0-2/HPF) Urine WBC 6 /HPF (0-5/HPF) Urine Squamous Epithelial Cells Few /LPF (NONE-FEW) Urine Bacteria Negative /HPF (NONE-FEW) Urine Mucus Few /HPF (NONE-FEW) Coagulation Test 08/24/17 18:40 Prothrombin Time 21.0 seconds Prothromb Time International Ratio 1.79 Activated Partial Thromboplast Time 32 seconds Urinalysis Test 08/24/17 20:20 Urine Color Yellow Urine Clarity Clear Urine pH 6.0 pH (4.8-9.5) Urine Specific Only 1.012 Urine Protein Negative mg/dL (NEGATIVE) Urine Glucose (UA) Negative mg/dL (NEGATIVE) Urine Ketones Negative mg/dL (NEGATIVE) Urine Blood Negative (NEGATIVE) Urine Nitrite Negative (NEGATIVE) Urine Bilirubin Negative (NEGATIVE) Urine Urobilinogen Negative mg/dL (0.2-1.9) Urine Leukocyte Esterase Negative (NEGATIVE) Urine RBC <1 /HPF (0-2/HPF) Urine WBC 6 /HPF (0-5/HPF) Urine Squamous Epithelial Cells Few /LPF (NONE-FEW) Urine Bacteria Negative /HPF (NONE-FEW) Urine Mucus Few /HPF (NONE-FEW) EKG/Imaging EKG Interpretation 12 lead EKG: Rhythm: Atrial fibrillation ablation with slow ventricular response. Rate [address] segments: No acute ST changes identified. There is some T-wave inversion in V1. Imaging CT Head: IMPRESSION: 1. No acute fracture, hemorrhage or intracranial mass lesion. No CT evidence of acute infarct. 2. Patchy appearance of the calvarium and skull base with multiple small lucencies. This could be due to osteoporosis. Multiple myeloma is in the differential. Report Dictated By: Mercedes Rosario MD at 08/24/2017 7:36 PM Report E-Signed By: Mercedes Rosario MD at 08/24/2017 7:40 PM ED Course/Re-evaluation ED Course Will obtain labs, EKG, CT of the head. 08/24/2017 8:30:00 pm - attempted tabulate patient but she could not ambulate. Discussed patient with Dr. Barahona, hospitalist, who will admit patient under his care for weakness. Urinalysis is pending. Patient is open to assisted living or [facility]ci. Decision to Disposition Date: Aug 24, 2017 Decision to Disposition Time: 20:30 Depart Departure Latest Vital Signs Vital Signs Date Time Temp Pulse Resp B/P (MAP) Pulse Ox O2 Delivery O2 Flow Rate FiO2 08/24/17 20:18 62 21 08/24/17 20:00 152/75 (100) 08/24/17 19:48 95 08/24/17 18:56 5.0 08/24/17 18:56 98.5 Room Air Impression: Primary Impression: Bilateral leg weakness Additional Impression: Afib Condition: Condition Unchanged Disposition: Admitted from ER Referrals: TERE BRITO MD (PCP) MD Consult Note: Dr. Barahona, Hospitalist Problem Qualifiers Additional Impression: Afib Atrial fibrillation type: chronic Qualified Codes: I48.2 - Chronic atrial fibrillation ALEKSANDRA ARNOLD PA-C Aug 24, 2017 20:01
[2017-08-24] MEDS ORDERED: NS(*) 0.9% 1000 ML BAG 1,000 ML IV PRN (21:26)
[2017-08-24 21:35] VITALS: BP 164/67
--- NOTE | 2017-08-24 21:45 | History & Physical ---
History of Present Illness Chief Complaint "Legs are weak...just give out" History of Present Illness 77yo female with PMHx significant for chronic a-fib, UTIs, olfactory neuroblastoma, diastolic heart failure. She was recently admitted with lower extremity weakness felt to be associated with an acute UTI. She was treated with a course of levofloxacin with improvement in her symptoms. She returned home and reports doing well up until today. She had PT and states it "wore me out". She feels as if she is unable to use her legs/not able to walk or even arise. She was re-evaluated in the ER. Her labs were unremarkable. Her UA showed only 6 WBC/hpf. CT scan of her brain shows no acute abnormalities, but may have changes consistent with osteoporosis vs. multiple myeloma. She denies any back or leg pain. She has chronic urinary incontinence, which is unchanged. She denies any headaches or double vision. She denies any upper extremity weakness. She has not had any trouble speaking or swallowing. She was recommended for admission. History Problems: (1) Afib Status: Chronic (2) Neuroblastoma, olfactory Status: Chronic (3) Chronic diastolic (congestive) heart failure Status: Chronic (4) History of DVT (deep vein thrombosis) Status: Chronic (5) Urinary tract infection Status: Acute (6) Gout Status: Chronic (7) GERALDINE (obstructive sleep apnea) Status: Chronic Home Meds Reported Medications Warfarin Sodium (WARFARIN SODIUM) 5 Mg Tablet, 2.5 MG PO DIRECTED, TAB MON,FRI 08/17/17 Warfarin Sodium (WARFARIN SODIUM) 5 Mg Tablet, 5 MG PO DIRECTED, TAB TU,WED,TH,SAT,SUN 08/17/17 Acetaminophen 500 Mg Tab (ACETAMINOPHEN EXTRA STRENGTH) 500 Mg Tablet, 500-1000 MG PO BID Y for PAIN, TAB 08/17/17 Calcium Carbonate/Vitamin D3 (CALCIUM + VITAMIN D TABLET) 1 Each Tablet, 1 EACH PO QDAY 08/17/17 Ascorbic Acid (VITAMIN C) 500 Mg Tablet, 500 MG PO QDAY, TAB 08/17/17 Glucosa Glover 2KCL/Chondroitin Glover (GLUCOSAMINE & CHONDROITIN CAP) 1 Each Capsule, 2 EACH PO QDAY, CAPSULE 08/17/17 [place]-3S/Dha/Epa/Fish Oil/D3 (FISH OIL + D3 SOFTGEL) 1 Each Capsule, 2 EACH PO QDAY, CAPSULE 08/17/17 Allopurinol (ZYLOPRIM) 300 Mg Tablet, 150 MG PO QDAY, TAB 08/17/17 Oxygen (Oxygen) 2 L Inha, 3 L INH DAILY, 0 Refills 07/09/10 Atorvastatin (Lipitor) 10 Mg Tab, 10 MG PO QHS, 0 Refills 07/09/10 Potassium Chloride (Micro-K/K-Dur/Klor-Con) 10 Meq Capcr, 20 MEQ PO TID, 0 Refills 07/09/10 Montelukast Sodium (Singulair) 10 Mg Tablet, 10 MG PO QPM, 0 Refills 07/09/10 Furosemide (Lasix) 40 Mg Tab, 40 MG PO BID, 0 Refills 07/09/10 Discontinued Reported Medications Verapamil Hcl (VERAPAMIL HCL) 120 Mg Tablet, 60 MG PO QDAY 08/17/17 Verapamil Hcl (VERAPAMIL ER) 120 Mg Cap24h.pel, 120 MG PO QDAY 08/17/17 Clindamycin Hcl (CLINDAMYCIN HCL) 150 Mg Capsule, 150 MG PO TID, #21 CAPSULE 12/03/12 Warfarin Sod (Coumadin (Or Equiv)) 5 Mg Tab, 5 MG PO QDAY for 5 Days, 0 Refills It is very important that you take your coumadin exactly as prescribed, have blood work to monitor your PT/INR values, and follow up with your health care provider as prescribed. Diet and medication can affect the PT/INR level. Keep your diet pretty much the same day to day. Many foods contain Vitamin K which helps blood to clot and can affect the way your coumadin works. You don't need to avoid foods that have Vitamin K, but you do need to eat about the same amount of them every day. Be sure to tell your provider before changing your diet for any reason (weight loss, illness, etc.) Do not start or discontinue any medications, prescribed or over the counter, except on the advise of your provider or pharmacist. Coumadin (Warfarin) increases the risk of bleeding. 10/04/11 Warfarin Sod (Coumadin (Or Equiv)) 2.5 Mg Tab, 2.5 MG PO 3XW for 2 Days, 0 Refills It is very important that you take your coumadin exactly as prescribed, have blood work to monitor your PT/INR values, and follow up with your health care provider as prescribed. Diet and medication can affect the PT/INR level. Keep your diet pretty much the same day to day. Many foods contain Vitamin K which helps blood to clot and can affect the way your coumadin works. You don't need to avoid foods that have Vitamin K, but you do need to eat about the same amount of them every day. Be sure to tell your provider before changing your diet for any reason (weight loss, illness, etc.) Do not start or discontinue any medications, prescribed or over the counter, except on the advise of your provider or pharmacist. Coumadin (Warfarin) increases the risk of bleeding. 10/04/11 Verapamil Hcl (Verapamil Er) 100 Mg Cap24h.pel, 100 MG PO QHS, 0 Refills 05/20/11 Verapamil Hcl (Verapamil Er) 100 Mg Cap24h.pel, 100 MG PO NOON, 0 Refills 05/20/11 Verapamil Hcl (Verapamil Er) 100 Mg Cap24h.pel, 50 MG PO QAM, 0 Refills 05/20/11 Metoprolol Succinate (Metoprolol Succinate) 50 Mg Tab.sr.24h, 25 MG PO BID, 0 Refills 04/12/11 Fluticasone Propionate (Flovent Hfa 110 Mcg) 12 Gm Aer.w.adap, 0 INH BID, 0 Refills 07/09/10 Tiotropium [place] (Spiriva) 18 Mcg Inh, 1 PUFF DAILY, 0 Refills 07/09/10 Alprazolam (Alprazolam) 0.5 Mg Tab.rapdis, 0.5 MG PO HS, 0 Refills as needed 07/09/10 Glucosam Sul Na/Chondr Glover A Na (Ra Glucosamin-Chondroit Tb) 1 Tab Tablet, 1 TAB PO, 0 Refills 07/09/10 Fish Oil/[place]-3 Fatty Acids (Fish Oil 1,000 Mg Softgel) 1 Cap Capsule, 1 CAP PO , 0 Refills 07/09/10 Calcium Carbonate (Calcium) 600 Mg Tablet, 600 MG PO, 0 Refills 07/09/10 Discontinued Scripts Levofloxacin 500 Mg Tab (LEVAQUIN 500 MG TAB) 500 Mg Tablet, 250 MG PO QDAY@10, #1 Prov:SAMM SO MD 08/19/17 Cephalexin Monohydrate (CEPHALEXIN) 500 Mg Cap, 500 MG PO Q6H, #28 CAP TAKE 1 CAPSULE BY MOUTH EVERY SIX HOURS Prov:SUMIT REED MD 05/08/14 Allergies: Coded Allergies: digoxin (Verified Allergy, Severe, TOXIC, 08/17/17) Adhesive Bandage (Verified Allergy, Mild, 08/17/17) Penicillins (Verified Allergy, Mild, 08/17/17) Uncoded Allergies: NARCOTIC (Allergy, Unknown, VOMITING, 04/20/16) Hx Smoking: No Exposure to Second Hand Smoke?: No Caffeine Intake: Coffee, Tea, Soda Caffeine/Cups Per Day: OCC Hx Alcohol Use: No Hx Substance Use Disorder: No Review of Systems Constitutional: Fever, Chills Neurological: Weakness (generalized) Cardiovascular: Chest Pain, Palpitations Respiratory: Shortness of Breath, Cough Genitourinary: Urinary Incontinence Musculoskeletal: Pain (right fifth toe) Exam Vital Signs Vital Signs Date Time Temp Pulse Resp B/P (MAP) Pulse Ox O2 Delivery O2 Flow Rate FiO2 08/24/17 21:35 98.0 60 15 164/67 (99) Nasal Cannula 2.0 08/24/17 20:38 95 General Appearance: Alert, Awake Neuro: Other (symmetric generalized weakness in both lower extremities, but no focal deficits/no fatiguability noted in repeated director of pulmonary unit strength) Eyes: PERRLA, Other (no lid lag noted) ENT: Oropharynx Clear Neck: No Masses Cardiovascular: Other (Irregular with distant tones) Respiratory: Clear to Auscultation Chest: No Tenderness GI: Abd Soft and Non-Tender (obese) : No CVA Tenderness Extremities: Warm, Perfused, Edema (trace both feet and ankles) Integumentary: Generalized Fragile Skin Psych: Alert & Oriented X3 Medical Decision Making Data Points Result Diagram: 08/24/17 1840 08/24/17 1840 Item Value Date Time Urine Mucus Few /HPF 08/24/172019 Urine Bacteria Negative /HPF 08/24/172019 Urine Squamous Epithelial Cells Few /LPF 08/24/172019 Urine WBC 6 /HPF 08/24/172019 Urine RBC <1 /HPF 08/24/172019 Urine Leukocyte Esterase Negative 08/24/172019 Urine Urobilinogen Negative mg/dL 08/24/172019 Urine Bilirubin Negative 08/24/172019 Urine Nitrite Negative 08/24/172019 Urine Blood Negative 08/24/172019 Urine Ketones Negative mg/dL 08/24/172019 Urine Glucose (UA) Negative mg/dL 08/24/172019 Urine Protein Negative mg/dL 08/24/172019 Urine Specific [place] 1.012 08/24/172019 Urine pH 6.0 pH 08/24/172019 Urine Clarity Clear 08/24/172019 Urine Color Yellow 08/24/172019 Albumin 4.0 g/dl 08/24/171839 Total Protein 7.8 g/dl 08/24/171839 Troponin I < 0.012 ng/ml 08/24/171839 Alkaline Phosphatase 70 U/L 08/24/171839 Alanine Aminotransferase (ALT/SGPT) 31 U/L 08/24/171839 Aspartate Amino Transf (AST/SGOT) 28 U/L 08/24/171839 Total Bilirubin 0.6 mg/dl 08/24/171839 Calcium Level 9.6 mg/dl 08/24/171839 Prothrombin Time 21.0 seconds H 08/24/171839 Prothromb Time International Ratio 1.79 08/24/171839 Activated Partial Thromboplast Time 32 seconds 08/24/171839 EKG / Imaging EKG Interpretation A-fib with slow ventricular response Imaging PATIENT NAME: Kimberlee Graham : 1940 MR: [id number] V: [id number] EXAM DATE: ORDERING PHYSICIAN: ALEKSANDRA ARNOLD TECHNOLOGIST: Location: [facility] Patient: Kimberlee Graham : 1940 Visit/Account:[id number] Date of Sevice: 08/24/2017 EXAMINATION: CT head without IV contrast HISTORY: Weakness, fall. COMPARISON: CT head from 08/17/2017. TECHNIQUE: Contiguous axial images were obtained from the skull base to the vertex without intravenous contrast. Sagittal and coronal reformatted images are also submitted. One of the following dose optimization techniques was utilized in the performance of this exam: Automated exposure control; adjustment of the mA and/ or kV according to the patient's size; or use of an iterative reconstruction technique. Specific details can be referenced in the facility's radiology CT exam operational policy. FINDINGS: Brain volume: Normal. Ventricles: Normal. Acute ischemic changes: None. Hemorrhage: No acute intracranial hemorrhage. Masses/edema: None. Shoemaker-white: Negative. White matter: Patchy hypodensities in the deep white matter bilaterally. Vessels: Calcified plaque of both carotid siphons. Extra-axial: Negative. Calvarium/scalp: There is no acute fracture. Patchy appearance of the calvarium with multiple small lucencies. Skull base/visualized face: Patchy appearance of the skull base with multiple small lucencies. Previous lens surgery bilaterally. Visualized sinuses/orbits: Postoperative changes in the left ethmoid air cells with mild patchy mucosal thickening of the ethmoid region and bilateral maxillary sinuses, unchanged. IMPRESSION: 1. No acute fracture, hemorrhage or intracranial mass lesion. No CT evidence of acute infarct. 2. Patchy appearance of the calvarium and skull base with multiple small lucencies. This could be due to osteoporosis. Multiple myeloma is in the differential. Report Dictated By: Mercedes Rosario MD at 08/24/2017 7:36 PM Report E-Signed By: Mercedes Rosario MD at 08/24/2017 7:40 PM WSN:[id number] Assessment and Plan Problems: (1) Bilateral leg weakness Status: Acute Assessment & Plan: Question is the underlying cause. May be related to several possible etiologies. It does appear the UTI has resolved (or at least improved) . Will check urine culture and treat if needed. She may have bradydysrhythmia which could cause her weakness. Will watch on telemetry. She could also have a TIP BANDING MACHINE OPERATOR etiology. CT scan of brain is rather unremarkable. She may need MRI of brain and spinal cord. Will have PT/OT see her. (2) Afib Status: Chronic Assessment & Plan: She is a little on bradycardic side. Will watch on telemetry. She could easily have tachy-jake syndrome with her a-fib. She is not currently on any meds for rate control. She is anticoagulated with warfarin (slightly sub-therapeutic). Will increase her regimen to 5mg daily. Watch INR. (3) GERALDINE (obstructive sleep apnea) Status: Chronic Assessment & Plan: Will continue with CPAP with 3L oxygen bleed in. Copies to: TERE BRITO MD Venous Thromboembolism Antithrombotics Is Pt On Any Antithrombotics?: Yes Exam Sepsis Risk: No Definite Risk Problem Qualifiers (1) Afib: Atrial fibrillation type: chronic Qualified Codes: I48.2 - Chronic atrial fibrillation SALO SMITH MD Aug 24, 2017 21:45
[2017-08-25] VITALS (7 sets, daily range): BP systolic 133–157; BP diastolic 61–82; Ht 157.5 cm; Wt 86.3 kg
[2017-08-25 06:47] LABS: PLATELET COUNT, AUTOMATED 153 K/uL (150-450)
[2017-08-25 06:53] LABS: INR 1.77
[2017-08-25] MEDS: ALLOPURINOL 300 MG TAB PO SCH (09:02)
[2017-08-25] MEDS: NYSTATIN 100,000 U/GM PWD 15GM TP SCH ×2 (10:30→22:20)
[2017-08-25] MEDS: POTASSIUM CHL 10 MEQ TABCR PO SCH ×3 (11:17→22:20)
[2017-08-25] MEDS: FUROSEMIDE 40 MG TAB PO SCH (11:17)
--- NOTE | 2017-08-25 12:04 | Hospitalist Progress Note ---
Subjective Progress Notes Subjective No problems overnight. The patient is nervous about ambulating with PT. The patient reports that she take verapamil at home (not on the med rec). She last took it yesterday. She had heart rates down to the high 30's at times. No reported symptoms during that. Physical Exam Vital Signs Date Time Temp Pulse Resp B/P (MAP) Pulse Ox O2 Delivery O2 Flow Rate FiO2 08/25/17 11:01 97.7 54 137/82 (100) 96 Nasal Cannula 2.0 08/25/17 03:12 18 08/24/17 22:34 30.0 Intake and Output 08/26/17 07:00 Intake Total 584 ml Balance 584 ml Intake Oral 0 ml IV Total 584 ml # Voids 2 General Appearance: Alert, Awake, No Acute Distress Cardiovascular: Other (jake, regular) Musculoskeletal: Other (R great toe with MTP tenderness to palpation that is worse on plantar aspect. No erythema. Painless passive ROM.) Result Diagram: 08/25/1751808/25/17518 Assessment and Plan Problems: (1) Bilateral leg weakness Status: Acute Assessment & Plan: Etiology unclear. May be related to several possible etiologies. It does appear the UTI has resolved (or at least improved). Will check urine culture and treat if needed. She may have bradydysrhythmia which could cause her weakness. Will watch on telemetry. She could also have a CODIFIER etiology. CT scan of brain is rather unremarkable. She may need MRI of brain and spinal cord. Will have PT/OT see her. (2) Afib Status: Chronic Assessment & Plan: She is bradycardic. It turns out that she takes verapamil at home, and she resumed it when discharged last week. We didn't have any record that she was on it. It is held. Will follow on telemetry. If she continues to be bradycardic and weak, then will need to talk with Cardiology about pacemaker placement. She is anticoagulated with warfarin (slightly sub- therapeutic). Will increase her regimen to 5mg daily. Watch INR. (3) Toe pain, right Status: Acute Assessment & Plan: R 5th toe pain at MTP joint. Occurred after a fall the day of admission. No obvious swelling/bruising/erythema. Will get an Xray. (4) GERALDINE (obstructive sleep apnea) Status: Chronic Assessment & Plan: Will continue with CPAP with 3L oxygen bleed in. Exam Sepsis Risk: No Definite Risk Problem Qualifiers (1) Afib: Atrial fibrillation type: chronic Qualified Codes: I48.2 - Chronic atrial fibrillation SAMM SO MD Aug 25, 2017 12:04
--- NOTE | 2017-08-25 12:57 | RADIOLOGY IMAGING REPORT ---
FACILITY: [facility] PATIENT NAME: Kimberlee Graham : 1940 MR: [id number] V: [id number] EXAM DATE: ORDERING PHYSICIAN: SAMM SO [place]CHNOLOGIST[place] [facility] [place] : 1940 Visit/Account:[id number] Date of Sevice: 08/25/2017 EXAMINATION: Right foot radiographs 2 views HISTORY: Fifth toe pain COMPARISON: None. FINDINGS: Frontal and lateral views obtained. Bones: Age-indeterminate irregular deformity of the distal fifth metatarsal. Focal tiny cortical delvin ency in this area as well. Joint spaces: Normal. Alignment: Normal. Soft tissues: Normal. IMPRESSION: Age-indeterminate distal fifth metatarsal fracture deformity. There is a tiny cortical lucency in thi s area which may reflect an acute fracture. This cortical lucency may alternatively be chronic relate d to distant fracture. Correlate with site of pain. Report Dictated By: Rodrick Handley MD at 08/25/2017 12:50 PM Report E-Signed By: Rodrick Handley MD at 08/25/2017 12:53 PM WSN:[id number]
[2017-08-25] MEDS: WARFARIN SOD 5 MG TAB PO SCH (13:24)
[2017-08-25] MEDS: MONTELUKAST SODIUM 10 MG TAB PO SCH (16:35)
[2017-08-25] MEDS: ATORVASTATIN 10 MG TAB PO SCH (22:20)
[2017-08-26 02:39] VITALS: BP 144/61
[2017-08-26 06:03] LABS: PLATELET COUNT, AUTOMATED 143 K/uL (150-450)
[2017-08-26 06:15] LABS: INR 1.81
[2017-08-26 08:41] VITALS: BP 124/61
[2017-08-26] MEDS: NYSTATIN 100,000 U/GM PWD 15GM TP SCH ×2 (09:00→20:34)
[2017-08-26] MEDS: ALLOPURINOL 300 MG TAB PO SCH (09:11)
[2017-08-26] MEDS: POTASSIUM CHL 10 MEQ TABCR PO SCH ×3 (09:11→20:34)
[2017-08-26] MEDS: FUROSEMIDE 40 MG TAB PO SCH (09:11)
[2017-08-26] MEDS ORDERED: VERA120T72 PO (10:20)
[2017-08-26 11:55] VITALS: BP 140/71
--- NOTE | 2017-08-26 12:53 | Hospitalist Progress Note ---
Subjective Progress Notes Subjective Feeling better but still unable to ambulate on her own. Pulse remains low. Physical Exam Vital Signs Date Time Temp Pulse Resp B/P (MAP) Pulse Ox O2 Delivery O2 Flow Rate FiO2 08/26/17 11:55 99.1 52 16 140/71 (94) 97 Nasal Cannula 2.0 08/26/17 02:39 30.0 Intake and Output 08/27/17 07:00 Intake Total 200 ml Balance 200 ml Intake Oral 200 ml # Voids 1 # Bowel Movements 1 General Appearance: Alert, Awake, No Acute Distress Neuro: No Gross deficits Cardiovascular: Other (Bradycardic with ectopy.) Respiratory: Clear to Auscultation GI: Soft and Non-Tender Extremities: Warm, Perfused Psych: Appropriate Mood & Affect Result Diagram: 08/26/1753108/26/17531 Assessment and Plan Problems: (1) Bilateral leg weakness Status: Acute Assessment & Plan: Etiology unclear. May be related to several possible etiologies. It does appear the UTI has resolved (or at least improved). Will check urine culture and treat if needed. She does have bradydysrhythmia which could cause her weakness. Will watch on telemetry. She could also have a SYRUP MIXER ASSISTANT etiology. CT scan of brain is rather unremarkable. She may need MRI of brain and spinal cord. Will have PT/OT see her. (2) Afib Status: Chronic Assessment & Plan: She is bradycardic. It turns out that she takes verapamil at home, and she may have resumed it when discharged last week. Dr. Cowart did stop it due to bradycardia, but she believes the Home Health folks were still putting it in her pill box. Per the external med history she last filled it in mid-June. Will follow on telemetry. If she continues to be bradycardic and weak, then will need to talk with Cardiology about pacemaker placement. She is anticoagulated with warfarin (slightly sub-therapeutic). Will increase her regimen to 5mg daily. Watch INR. (3) Toe pain, right Status: Acute Assessment & Plan: R 5th toe pain at MTP joint. Occurred after a fall the day of admission. No obvious swelling/bruising/erythema. X-ray shows a fracture. Per call to ortho, she will need to be in a boot. (4) GERALDINE (obstructive sleep apnea) Status: Chronic Assessment & Plan: Will continue with CPAP with 3L oxygen bleed in. Time Spent on Plan of Care: < 30 min Exam Sepsis Risk: No Definite Risk Problem Qualifiers (1) Afib: Atrial fibrillation type: chronic Qualified Codes: I48.2 - Chronic atrial fibrillation MILA SMITH MD Aug 26, 2017 12:53
[2017-08-26] MEDS: WARFARIN SOD 5 MG TAB PO SCH (13:19)
[2017-08-26 16:11] VITALS: BP 151/73
[2017-08-26] MEDS: MONTELUKAST SODIUM 10 MG TAB PO SCH (17:19)
[2017-08-26 19:01] VITALS: BP 119/54
[2017-08-26] MEDS: ATORVASTATIN 10 MG TAB PO SCH (20:34)
[2017-08-26 23:00] VITALS: BP 133/79
[2017-08-27 06:19] LABS: INR 2.04
[2017-08-27 06:45] VITALS: BP 140/62
[2017-08-27] MEDS: FUROSEMIDE 40 MG TAB PO SCH (08:33)
[2017-08-27] MEDS: POTASSIUM CHL 10 MEQ TABCR PO SCH ×3 (08:33→20:48)
[2017-08-27] MEDS: ALLOPURINOL 300 MG TAB PO SCH (08:33)
[2017-08-27] MEDS: NYSTATIN 100,000 U/GM PWD 15GM TP SCH ×2 (08:34→20:48)
--- NOTE | 2017-08-27 10:06 | Hospitalist Progress Note ---
Subjective Progress Notes Subjective This patient was admitted for weakness. She had no acute events overnight, but was noted to have bradycardia. Patient Complains of: Cardiovascular: No: Chest Pain Respiratory: No: Shortness of Breath Physical Exam Vital Signs Date Time Temp Pulse Resp B/P (MAP) Pulse Ox O2 Delivery O2 Flow Rate FiO2 08/27/17 07:53 47 08/27/17 07:30 91 Nasal Cannula 2.0 08/27/17 06:45 97.7 14 140/62 (88) 08/26/17 23:40 30.0 Intake and Output 08/28/17 07:00 Intake Total 0 ml Balance 0 ml Intake Oral 0 ml Cardiovascular: Normal Rhythm & Peripheral Pulses, No Edema, No JVD Respiratory: Clear to Auscultation Result Diagram: 08/26/17 0532 08/26/17 0532 Item Value Date Time Prothromb Time International Ratio 2.04 08/27/17 0537 Assessment and Plan Problems: (1) Bilateral leg weakness Status: Acute Assessment & Plan: Physical and occupational therapy consults are pending. (2) Afib Status: Chronic Assessment & Plan: She is anticoagulated with warfarin (slightly sub- therapeutic). Her dose was increased during this admission. (3) GERALDINE (obstructive sleep apnea) Status: Chronic Assessment & Plan: She is on chronic treatment with CPAP. (4) Bradycardia Assessment & Plan: She was noted to have bradycardia with a rate in the 30's. She will be evaluated by Dr. Crawford tomorrow. (5) Fracture of 5th metatarsal Assessment & Plan: She was found to have a fracture of the 5th metatarsal. Orthopedics recommended that she be placed in a boot and follow up as an outpatient. Exam Sepsis Risk: No Definite Risk Problem Qualifiers (1) Afib: Atrial fibrillation type: chronic Qualified Codes: I48.2 - Chronic atrial fibrillation TERE ARVIZU DO Aug 27, 2017 10:06
[2017-08-27] MEDS: WARFARIN SOD 5 MG TAB PO SCH (12:42)
[2017-08-27 15:03] VITALS: BP 151/77
[2017-08-27] MEDS: MONTELUKAST SODIUM 10 MG TAB PO SCH (16:46)
[2017-08-27] MEDS: ATORVASTATIN 10 MG TAB PO SCH (20:48)
[2017-08-27 22:34] VITALS: BP 131/68
[2017-08-27] MEDS: ACETAMINOPHEN 325 MG TAB PO PRN (22:36)
[2017-08-28 06:39] LABS: INR 2.36
[2017-08-28 07:22] VITALS: BP 142/77
[2017-08-28] MEDS: ALLOPURINOL 300 MG TAB PO SCH (09:00)
[2017-08-28] MEDS: FUROSEMIDE 40 MG TAB PO SCH (09:01)
[2017-08-28] MEDS: NYSTATIN 100,000 U/GM PWD 15GM TP SCH ×2 (09:01→20:31)
[2017-08-28] MEDS: POTASSIUM CHL 10 MEQ TABCR PO SCH ×3 (09:01→20:30)
--- NOTE | 2017-08-28 10:17 | Hospitalist Progress Note ---
Subjective Progress Notes Subjective She slept well overnight. No concerns from staff. Physical Exam Vital Signs Date Time Temp Pulse Resp B/P (MAP) Pulse Ox O2 Delivery O2 Flow Rate FiO2 08/28/17 07:53 44 08/28/17 07:30 95 Nasal Cannula 2.0 08/28/17 07:22 97.7 14 142/77 (98) 08/26/17 23:40 30.0 Intake and Output 08/29/17 07:00 Intake Total 0 ml Balance 0 ml Intake Oral 0 ml # Voids 2 # Bowel Movements 2 General Appearance: Alert, Awake, No Acute Distress Cardiovascular: Other (jake, irregular, no m/r/g) Extremities: No Edema Result Diagram: 08/26/1753108/26/1732 Assessment and Plan Problems: (1) Bilateral leg weakness Status: Acute Assessment & Plan: Etiology unclear. May be related to several possible etiologies. It does appear the UTI has resolved (culture without growth). She does have bradydysrhythmia which could cause her weakness. Will watch on telemetry. She could also have a FOOD DEMONSTRATOR etiology. CT scan of brain is rather unremarkable. She may need MRI of brain and spinal cord. PT/OT seeing her and recommending snf rehab. (2) Afib Status: Chronic Assessment & Plan: She is bradycardic. It turns out that she takes verapamil at home, and she may have resumed it when discharged last week. Dr. Cowart did stop it due to bradycardia, but she believes the Home Health folks were still putting it in her pill box. Per the external med history she last filled it in mid-June. Will follow on telemetry. She is anticoagulated with warfarin ( therapeutic). Her dose was increased during this admission. Daily INR. (3) Bradycardia Assessment & Plan: She was noted to have bradycardia with a rate in the 30's. She thinks she was taking verapamil as an outpatient. See above. Dr. Crawford saw the patient this morning. He wants to check a TSH and give her another 24 hours off of verapamil. If her heart rate continues to be less than 50 and she is symptomatic, then they would consider a pacemaker. He has a written note on the chart. (4) GERALDINE (obstructive sleep apnea) Status: Chronic Assessment & Plan: She is on chronic treatment with CPAP. (5) Fracture of 5th metatarsal Assessment & Plan: R 5th toe pain at MTP joint. Occurred after a fall the day of admission. No obvious swelling/bruising/erythema. X-ray shows a fracture. Per call to ortho, she will need to be in a boot. Exam Sepsis Risk: No Definite Risk Problem Qualifiers (1) Afib: Atrial fibrillation type: chronic Qualified Codes: I48.2 - Chronic atrial fibrillation SAMM SO MD Aug 28, 2017 10:17
[2017-08-28 11:02] VITALS: BP 138/64
[2017-08-28] MEDS: WARFARIN SOD 5 MG TAB PO SCH (12:16)
[2017-08-28 14:25] VITALS: BP 112/57
[2017-08-28] MEDS: MONTELUKAST SODIUM 10 MG TAB PO SCH (16:21)
[2017-08-28] MEDS: ATORVASTATIN 10 MG TAB PO SCH (20:31)
[2017-08-29] VITALS (7 sets, daily range): BP systolic 132–155; BP diastolic 61–73
[2017-08-29] MEDS: ACETAMINOPHEN 325 MG TAB PO PRN (02:30)
[2017-08-29 06:23] LABS: INR 2.59
[2017-08-29] MEDS: POTASSIUM CHL 10 MEQ TABCR PO SCH ×3 (08:27→21:01)
[2017-08-29] MEDS: ALLOPURINOL 300 MG TAB PO SCH (08:28)
[2017-08-29] MEDS: FUROSEMIDE 40 MG TAB PO SCH (08:28)
--- NOTE | 2017-08-29 11:40 | Hospitalist Progress Note ---
Subjective Progress Notes Subjective She reports doing well. She still requires assistance with most ADLs, but has not had any "spells". HR has been in 40-50 range, but none into 30s. Physical Exam Vital Signs Date Time Temp Pulse Resp B/P (MAP) Pulse Ox O2 Delivery O2 Flow Rate FiO2 08/29/17 10:48 98.0 51 16 135/61 (85) 94 Nasal Cannula 2.0 08/26/17 23:40 30.0 Intake and Output 08/30/17 07:00 Intake Total 240 ml Balance 240 ml Intake Oral 240 ml # Voids 3 # Bowel Movements 2 General Appearance: Alert, Awake Cardiovascular: Other (Irregular slightly bradycardic) Respiratory: Clear to Auscultation GI: Soft and Non-Tender Extremities: Warm, Perfused Result Diagram: 08/26/17 0532 08/26/17 0532 Assessment and Plan Problems: (1) Bilateral leg weakness Status: Acute Assessment & Plan: Etiology unclear, but she does appear slightly improved. May be related to several possible etiologies. It does appear the UTI has resolved (culture without growth). She does have bradydysrhythmia which could cause her weakness. Will continue to watch on telemetry. She could also have a CAR COOPER etiology. CT scan of brain is rather unremarkable. She may need MRI of brain and spinal cord. PT/OT seeing her and recommending superintendent terminal rehab. (2) Afib Status: Chronic Assessment & Plan: She is bradycardic. It turns out that she takes verapamil at home, and she may have resumed it when discharged last week. Dr. Cowart did stop it due to bradycardia, but she believes the Home Health folks were still putting it in her pill box. Per the external med history she last filled it in mid-June. Will continue to follow on telemetry. She is anticoagulated with warfarin (therapeutic). Her dose was increased during this admission. Daily INR. (3) Bradycardia Assessment & Plan: She was noted to have bradycardia with a rate in the 30s. Her heart rate has improved slightly. She thinks she was taking verapamil as an outpatient (see above). Dr. Crawford saw the patient yesterday. He wants her 48- 72 hours off of verapamil. Her TSH is normal at 2.32. If her heart rate continues to be less than 50 and she is symptomatic, then they would consider a pacemaker. He has a written note on the chart. (4) GERALDINE (obstructive sleep apnea) Status: Chronic Assessment & Plan: She is on chronic treatment with CPAP. (5) Fracture of 5th metatarsal Assessment & Plan: Right 5th toe pain at MTP joint. Occurred after a fall the day of admission. No obvious swelling/bruising/erythema. X-ray shows a fracture. Per call to orthopedics - she will need to be in a walking boot. Exam Sepsis Risk: No Definite Risk Problem Qualifiers (1) Afib: Atrial fibrillation type: chronic Qualified Codes: I48.2 - Chronic atrial fibrillation SALO SMITH MD Aug 29, 2017 11:40
[2017-08-29] MEDS: WARFARIN SOD 5 MG TAB PO SCH (12:18)
[2017-08-29] MEDS: NYSTATIN 100,000 U/GM PWD 15GM TP SCH ×2 (12:18→21:00)
[2017-08-29] MEDS: MONTELUKAST SODIUM 10 MG TAB PO SCH (17:20)
[2017-08-29] MEDS: ATORVASTATIN 10 MG TAB PO SCH (21:01)
[2017-08-30] MEDS: ACETAMINOPHEN 325 MG TAB PO PRN (02:20)
[2017-08-30 02:21] VITALS: BP 143/65
[2017-08-30 05:56] LABS: PLATELET COUNT, AUTOMATED 142 K/uL (150-450)
[2017-08-30 05:57] LABS: INR 2.64
[2017-08-30 07:43] VITALS: BP 157/73
[2017-08-30] MEDS: FUROSEMIDE 40 MG TAB PO SCH (08:53)
[2017-08-30] MEDS: ALLOPURINOL 300 MG TAB PO SCH (08:54)
[2017-08-30] MEDS: POTASSIUM CHL 10 MEQ TABCR PO SCH (08:54)
[2017-08-30] MEDS: NYSTATIN 100,000 U/GM PWD 15GM TP SCH (08:56)
[2017-08-30] MEDS ORDERED: FURO-47 PO (09:28)
[2017-08-30] MEDS ORDERED: WARF-1 PO (09:28)
[2017-08-30] MEDS ORDERED: NYST15PO12 TP (09:28)
--- NOTE | 2017-08-30 09:40 | Hospitalist Depart ---
Discharge Summary Reason for Hosp/Final Diag: (1) Bilateral leg weakness Status: Acute Hospital Course & Plan: Etiology unclear, but she does appear slightly improved. May be related to several possible etiologies. It does appear the UTI has resolved (culture without growth). She does have bradydysrhythmia which could cause her weakness. Will set up a 48 hour Holter monitor as an outpatient. She could also have a [employer] etiology. CT scan of brain is rather unremarkable. She may need MRI of brain and spinal cord, if not improving. (2) Afib Status: Chronic Hospital Course & Plan: She is bradycardic. It turns out that she takes verapamil at home, and she may have resumed it when discharged last week. Dr. Brito did stop it due to bradycardia, but she believes the Home Health folks were still putting it in her pill box. Per the external med history she last filled it in mid-June. She is anticoagulated with warfarin (therapeutic). Her dose was increased during this admission. INR tomorrow. (3) Bradycardia Hospital Course & Plan: She was noted to have bradycardia with a rate in the 30s. Her heart rate has improved slightly. She thinks she was taking verapamil as an outpatient (see above). Dr. Crawford saw the patient. Her TSH is normal at 2.32. If her heart rate continues to be less than 50 and she is symptomatic, then they would consider a pacemaker. He has a written note on the chart. Will have the patient get a 48 hour Holter, as above. (4) GERALDINE (obstructive sleep apnea) Status: Chronic Hospital Course & Plan: She is on chronic treatment with CPAP. (5) Fracture of 5th metatarsal Hospital Course & Plan: Right 5th toe pain at MTP joint. Occurred after a fall the day of admission. No obvious swelling/bruising/erythema. X-ray shows a fracture. Per call to orthopedics - she be in a walking boot until it heals. This is making her rehab a bit more difficult. (6) Abnormal head CT Status: Chronic Hospital Course & Plan: The CT of the head found a patchy appearance of the calvarium and skull base with multiple small lucencies. Multiple myeloma and osteoporosis are concerns. Will defer to Dr. Brito for further workup. Departure Weight (Pounds): 190 Weight (Ounces): 3.0 Result Diagram: 08/30/17 0535 08/30/17 0535 Item Value Date Time White Blood Count 8.6 k/uL 08/24/17 1840 White Blood Count 7.8 k/uL 08/25/17 0519 White Blood Count 6.6 k/uL 08/26/17 0532 White Blood Count 5.9 k/uL 08/30/17 0535 Hemoglobin 13.2 g/dL 08/30/17 0535 Hemoglobin 12.9 g/dL 08/26/17 0532 Hemoglobin 13.1 g/dL 08/25/17 0519 Hemoglobin 14.4 g/dL 08/24/17 1840 Platelet Count 175 K/uL 08/24/17 1840 Platelet Count 153 K/uL 08/25/17 0519 Platelet Count 143 K/uL L 08/26/17 0532 Platelet Count 142 K/uL L 08/30/17 0535 Prothromb Time International Ratio 2.64 08/30/17 0535 Prothromb Time International Ratio 2.59 08/29/17 0610 Prothromb Time International Ratio 2.36 08/28/17 0545 Prothromb Time International Ratio 2.04 08/27/17 0537 Prothromb Time International Ratio 1.81 08/26/17 0532 Thyroid Stimulating Hormone (TSH) 2.32 uIU/ml 08/28/17 0645 Blood Urea Nitrogen 20 mg/dl H 08/24/17 1840 Blood Urea Nitrogen 17 mg/dl 08/25/17 0519 Blood Urea Nitrogen 18 mg/dl 08/26/17 0532 Blood Urea Nitrogen 15 mg/dl 08/30/17 0535 Creatinine 0.70 mg/dl 08/30/17 0535 Creatinine 0.80 mg/dl 08/26/17 0532 Creatinine 0.70 mg/dl 08/25/17 0519 Creatinine 0.80 mg/dl 08/24/17 1840 Sodium Level 141 mmol/L 08/24/17 1840 Sodium Level 140 mmol/L 08/25/17 0519 Sodium Level 139 mmol/L 08/30/17 0535 Potassium Level 4.2 mmol/L 08/30/17 0535 Potassium Level 3.6 mmol/L 08/26/17 0532 Sodium Level 141 mmol/L 08/26/17 0532 Potassium Level 3.4 mmol/L L 08/25/17 0519 Potassium Level 3.9 mmol/L 08/24/17 184 Troponin I < 0.012 ng/ml 08/24/17 184 Urine RBC <1 /HPF 08/24/172019 Urine WBC 6 /HPF 08/24/172019 Urine Leukocyte Esterase Negative 08/24/172019 Urine Squamous Epithelial Cells Few /LPF 08/24/172019 Urine Bacteria Negative /HPF 08/24/172019 Imaging 08/25/17 R Foot Xray - Age-indeterminate distal fifth metatarsal fracture deformity. There is a tiny cortical lucency in this area which may reflect an acute fracture. This cortical lucency may alternatively be chronic related to distant fracture. Correlate with site of pain. 08/24/[address] - 1. No acute fracture, hemorrhage or intracranial mass lesion. No CT evidence of acute infarct. 2. Patchy appearance of the calvarium and skull base with multiple small lucencies. This could be due to osteoporosis. Multiple myeloma is in the differential. Condition: Improved Discharge: Shelter PT/OT Follow Up For: PT For Strengthening, OT Evaluation and Treat Discharge Instructions Home Meds Active Scripts Nystatin (NYAMYC) 15 Gm Powder, 0 GM TP BID Y for cutaneous yeast infection for 30 Days, Prov:SAMM SO MD 08/30/17 Furosemide (FUROSEMIDE) 40 Mg Tablet, 40 MG PO DAILY for 30 Days, Prov:SAMM SO MD 08/30/17 Warfarin Sodium (COUMADIN) 5 Mg Tablet, 5 MG PO QDAYW for 30 Days, Prov:SAMM SO MD 08/30/17 Reported Medications Acetaminophen 500 Mg Tab (ACETAMINOPHEN EXTRA STRENGTH) 500 Mg Tablet, 500-1000 MG PO BID Y for PAIN, TAB 08/17/17 Calcium Carbonate/Vitamin D3 (CALCIUM + VITAMIN D TABLET) 1 Each Tablet, 1 EACH PO QDAY 08/17/17 Ascorbic Acid (VITAMIN C) 500 Mg Tablet, 500 MG PO QDAY, TAB 08/17/17 Allopurinol (ZYLOPRIM) 300 Mg Tablet, 150 MG PO QDAY, TAB 08/17/17 Atorvastatin (Lipitor) 10 Mg Tab, 10 MG PO QHS, 0 Refills 07/09/10 Potassium Chloride (Micro-K/K-Dur/Klor-Con) 10 Meq Capcr, 20 MEQ PO TID, 0 Refills 07/09/10 Montelukast Sodium (Singulair) 10 Mg Tablet, 10 MG PO QPM, 0 Refills 07/09/10 Discontinued Reported Medications Warfarin Sodium (WARFARIN SODIUM) 5 Mg Tablet, 2.5 MG PO DIRECTED, TAB MON,FRI 08/17/17 Warfarin Sodium (WARFARIN SODIUM) 5 Mg Tablet, 5 MG PO DIRECTED, TAB TUES,WED,THURS,SAT,SUN 08/17/17 Glucosa Glover 2KCL/Chondroitin Glover (GLUCOSAMINE & CHONDROITIN CAP) 1 Each Capsule, 2 EACH PO QDAY, CAPSULE 08/17/17 Acworth-3S/Dha/Epa/Fish Oil/D3 (FISH OIL + D3 SOFTGEL) 1 Each Capsule, 2 EACH PO QDAY, CAPSULE 08/17/17 Furosemide (Lasix) 40 Mg Tab, 40 MG PO BID, 0 Refills 07/09/10 Verapamil Hcl (VERAPAMIL HCL) 120 Mg Tablet, 1.5 TAB PO DAILY 08/26/17 Discontinued Scripts Levofloxacin 500 Mg Tab (LEVAQUIN 500 MG TAB) 500 Mg Tablet, 250 MG PO QDAY@10, #1 Prov:SAMM SO MD 08/19/17 Diet: Fluid Restricted, No Added Salt (KIMYM) Activity: No Heavy Lifting Special Instructions: WBAT with boot, transfer with sit to stand INR tomorrow. Copies to: TERE BRITO MD Venous Thromboembolism Antithrombotics Is Pt On Any Antithrombotics?: Yes Problem Qualifiers (1) Afib: Atrial fibrillation type: chronic Qualified Codes: I48.2 - Chronic atrial fibrillation SAMM SO MD Aug 30, 2017 09:40
[2017-08-30] MEDS: WARFARIN SOD 5 MG TAB PO SCH (12:41)
== END 2017-08-30 12:45 | DRG 309 ==
LOC: ER 18:59 → MED 20:41 → INTOOBSV 20:41 → OBSVTOIN 08-27
PROVIDERS: ADMIT Internal Medicine; ATTEND Internal Medicine
PROC: 5A09357 Assistance with Respiratory Ventilation, Less than 24 Consecutive Hours, Continuous Positive Airway Pressure (ICD-10-PCS; principal; 2017-08-24)
DX: I49.8 Other specified cardiac arrhythmias (principal); I50.32 Chronic diastolic (congestive) heart failure; I48.2 Chronic atrial fibrillation; R53.1 Weakness; T46.1X5A Adverse effect of calcium-channel blockers, initial encounter; G47.33 Obstructive sleep apnea (adult) (pediatric); M1A.9XX0 Chronic gout, unspecified, without tophus (tophi); S92.351A Displaced fracture of fifth metatarsal bone, right foot, initial encounter for closed fracture; W19.XXXA Unspecified fall, initial encounter; Y92.239 Unspecified place in hospital as the place of occurrence of the external cause; Y99.8 Other external cause status; Z88.0 Allergy status to penicillin; Z79.01 Long term (current) use of anticoagulants; Z88.8 Allergy status to other drugs, medicaments and biological substances; Z99.81 Dependence on supplemental oxygen; Z86.718 Personal history of other venous thrombosis and embolism
CPT/HCPCS: 36415; 70450; 81001; 82040; 82247; 82310; 82374; 82435; 82565; 82947; 84075; 84132; 84155; 84295; 84443; 84450; 84460; 84484; 84520; 85025; 85610; 85730; 87088; 93005; 94660; 97161; 97166; 99284; A4353; G0378; J7030

== ENCOUNTER → 2017-08-24 | Outpatient (CLI) | payer MEDICARE, MEDICAID ==
[~2017-08-24] MED LIST changes: +ACET-2146 PO; +ALLO-119 PO; +ASCO-182 PO; +CALC-852 PO; +FURO-47 PO; +GLUC-198 PO; +LEVO-85 PO; +NYST15PO12 TP; +OMEG1CAP39 PO; +VERA120T72 PO; +WARF-1 PO; +WARF5TAB23 PO
[2017-08-25 11:19] VITALS: BMI 34.8
== END ==
LOC: AMB 18:11
PROVIDERS: ATTEND Nurse Practitioner
DX: R53.1 Weakness (principal); I48.91 Unspecified atrial fibrillation
CPT/HCPCS: A0425; A0427

== ENCOUNTER → 2017-08-30 | Outpatient (CLI) | payer MEDICARE, MEDICAID ==
[2017-08-25 11:19] VITALS: BMI 34.8
[~2017-08-30] MED LIST changes: +FURO-47 PO; +NYST15PO12 TP; +WARF-1 PO
--- NOTE | 2017-09-04 06:32 | RT HOLTER TEST ---
FACILITY: [facility] - [place] PATIENT NAME: TEO DEVINE : [id number] MR: [id number] V: [id number] EXAM DATE: ORDERING PHYSICIAN: SAMM SO TECHNOLOGIST: Hemant Hook-up date: 2017-08-30 12:57:00 Duration: 47:59:00 Test Indications: A-FIB, BRADYCARDIA Medications: None listed [id number] QRS complexes 6302 Ventricular ectopics which represent 4 % of total QRS comp. 1 Supraventricular ectopics which represent <1 % of total QRS comp. * Paced QRS complexes which represent % of total QRS comp. VENTRICULAR ECTOPY 6153 Isolated 125 Bigeminal Cycles 58 Couplets 10 Runs 33 Beats in Runs 6 Beats LONGEST at 143 BPM at 12:40:55 2017-08-31 6 Beats FASTEST at 143 BPM at 12:40:55 2017-08-31 SUPRAVENTRICULAR ECTOPY 1 Isolated 0 Couplets 0 Runs 0 Beats in Runs * Beats LONGEST at * BPM at :: -- * Beats FASTEST at * BPM at :: -- HEART RATES 35 MIN at 05:18:10 2017-08-31 54 AVG 105 MAX at 21:40:45 2017-08-31 LONGEST RR 2.272 secs at 05:30:50 2017-08-31 S-T LEVELS Channel 1 -12.800 mm MIN at 12:57:00 2017-08-30 -12.800 mm MAX at 12:57:00 2017-08-30 Channel 3 -12.800 mm MIN at 12:57:00 2017-08-30 -12.800 mm MAX at 12:57:00 2017-08-30 Atrial fibrillation Frequent Premature ventricular complexes Bradycardia Confirmed by TERE ARVIZU ([id number]) on 09/04/2017 6:31:54 AM Referred By: Overread By: TERE ARVIZU
== END ==
LOC: RESP 13:01
PROVIDERS: ATTEND Internal Medicine
DX: I48.91 Unspecified atrial fibrillation (principal); R00.1 Bradycardia, unspecified
CPT/HCPCS: 93225; 93226

== ENCOUNTER → 2017-09-14 | Outpatient (CLI) | payer MEDICARE, MEDICAID ==
[2017-08-25 11:19] VITALS: BMI 34.8
--- NOTE | 2017-09-14 12:19 | RADIOLOGY IMAGING REPORT ---
FACILITY: [facility] PATIENT NAME: Kimberlee Graham : 1940 MR: [id number] V: [id number] EXAM DATE: ORDERING PHYSICIAN: TERE BRITO TECHNOLOGIST: Location: [facility] [place] Patient: Kimberlee Graham : 1940 Visit/Account:[id number] Date of Sevice: 09/14/2017 FOOT 3 VIEW RIGHT HISTORY: Follow-up metatarsal fractures. COMPARISON: 08/25/2017. TECHNIQUE: AP, oblique, and lateral views of the right foot. FINDINGS: No acute fracture. There is diffuse osteopenia. There has been interval healing of the fracture of the distal fifth meta tarsal diaphysis. There is sclerosis of the neck of the third metatarsal, compatible with fracture. There is also sligh t lateral angulation of the third metatarsal head, unchanged. There is subtle periosteal reaction in this location, new. There is lateral angulation of the fourth metatarsal head, unchanged, and there is new mild periostea l reaction. There is deformity the base of the fifth proximal phalanx, unchanged. There is degenerative change of the interphalangeal joints of the second through fifth digits. 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 There is a plantar calcanea l spur. IMPRESSION: 1. Healing/healed fractures of the third through fifth metatarsals. 2. Stable deformity of the base of the fifth proximal phalanx may be due to prior fracture or could b e positional. 3. Diffuse osteopenia. Report Dictated By: Shanta Marcum at 09/14/2017 12:08 PM Report E-Signed By: Shanta Marcum at 09/14/2017 12:15 PM WSN:[id number]
== END ==
LOC: RAD 11:16
PROVIDERS: ATTEND Family Medicine
DX: M85.88 Other specified disorders of bone density and structure, other site (principal); S92.351D Displaced fracture of fifth metatarsal bone, right foot, subsequent encounter for fracture with routine healing

== ENCOUNTER → 2017-09-26 | Outpatient (CLI) | payer MEDICARE, MEDICAID ==
[2017-08-25 11:19] VITALS: BMI 34.8
== END ==
LOC: RAD 01:53
PROVIDERS: ATTEND Family Medicine
DX: I51.7 Cardiomegaly (principal); I34.0 Nonrheumatic mitral (valve) insufficiency; I27.20 Pulmonary hypertension, unspecified
CPT/HCPCS: 93306

== ENCOUNTER → 2017-10-18 | Outpatient (REF) | payer MEDICARE, MEDICAID ==
[2017-08-25 11:19] VITALS: BMI 34.8
== END ==
LOC: ZZLCC 15:48
PROVIDERS: ATTEND Family Medicine
DX: I10 Essential (primary) hypertension (principal)
CPT/HCPCS: 82310; 82374; 82435; 82565; 82947; 84132; 84295; 84520

== ENCOUNTER → 2018-01-31 | Outpatient (REF) | payer MEDICARE ==
[2017-08-25 11:19] VITALS: BMI 34.8
== END ==
LOC: ZZPREMIUM 19:04
PROVIDERS: ATTEND Family Medicine
DX: R60.0 Localized edema (principal)
CPT/HCPCS: 82310; 82374; 82435; 82565; 82947; 84132; 84295; 84520

== ENCOUNTER → 2018-04-15 | Outpatient (REF) | payer MEDICARE, MEDICAID ==
[2017-08-25 11:19] VITALS: BMI 34.8
== END ==
LOC: ZZSENDIN 18:52
PROVIDERS: ATTEND Family Medicine
DX: E87.6 Hypokalemia (principal)
CPT/HCPCS: 82310; 82374; 82435; 82565; 82947; 84132; 84295; 84520